=== PATIENT | female | born 1935 | race Caucasian/White ===

== ENCOUNTER → 2018-06-13 14:17 | Outpatient (CLI) | payer OTHER, SELFPAY ==
[2018-06-13 14:41] LABS: Add Manual Diff / Slide Review NO; Basophils Percent Auto 0.9 % (0-2); Hematocrit 43.2 % (36-46); Hemoglobin 14.8 g/dL (12.0-16.0); Lymphocytes Percent Auto 26.8 % (25-40); Mean Corpuscular HGB Conc 34.2 % (30-36); Mean Corpuscular Hemoglobin 32.1 PG (26-34); Monocytes Percent Auto 6.2 % (3-14); Neutrophils Absolute Auto 5600 /uL (3000-5900); Neutrophils Percent Auto 65.1 % (50-75); Platelet Count 229 X10^3/uL (150-400); Red Blood Cell Count 4.59 X10^6/uL (4.0-5.2); White Blood Cell Count 8.5 X10^3/uL (4.5-11.0)
[2018-06-13 14:43] LABS: Alanine Aminotransferase 29 IU/L (9-52); Albumin 4.5 g/dL (3.5-5.0); Albumin Globulin Ratio 1.5 (1.0-2.8); Alkaline Phosphatase 51 U/L (38-126); Aspartate Aminotransferase 33 IU/L (14-36); BUN Creatinine Ratio 37.1 (6-22); Bilirubin Total 0.5 mg/dL (0.2-1.3); Blood Urea Nitrogen 26 mg/dL (7-17); Calcium 9.1 mg/dL (8.4-10.2); Carbon Dioxide 31 mmol/L (22-32); Chloride 101 mmol/L (98-107); Estimated Glomerular Filt Rate > 60.0 mL/min (>60); Glucose 117 mg/dL (80-110); HEMOLYSIS 16 (0-50); Potassium 4.1 mmol/L (3.4-5.1); Sodium 141 mmol/L (137-145); Total Protein 7.5 g/dL (6.3-8.2)
[2018-06-13 15:12] LABS: Carcinoembryonic Antigen 1.1 ng/mL (0.1-3.0)
[2018-06-14 15:40] VITALS: BP 113/80; PULSE 77; RESP 15; TEMP 36.9; O2SAT 97
== END ==
PROVIDERS: Internal Medicine Hematology & Oncology; PCP Family Medicine; Visit Provider Nurse Practitioner Gerontology
DX: C18.9 Malignant neoplasm of colon, unspecified (principal)
CPT/HCPCS: 36415; 80053; 82378; 85025

== ENCOUNTER 2018-11-09 09:06 | Day surgery (SDC) | payer OTHER, SELFPAY ==
[2018-11-09 09:41] VITALS: BP 126/89; PULSE 99; RESP 16; TEMP 36.7; O2SAT 104; BMI 18.1
[2018-11-09] MEDS: ONDANSETRON 4 MG/2 ML INJ IV (11:06)
--- NOTE | 2018-11-09 11:09 | PM.HP.1 ---
History of Present Illness Date Patient Seen: 11/09/18 Time Patient Seen: 11:25 Chief complaint: [id number] COLONOSCOPY Narrative: Wonderful 83-year-old lady with a personal history of cecal malignancy. She has stage II malignancy with a right hemicolectomy in 2014. She returns today for a surveillance colonoscopy. She had a negative CT scan of the chest abdomen pelvis in October 2017. She reports she is feeling well and has had no evidence of recurrence. She denies any change in her bowel habits. She still exercising daily. Patient History Family & Social History Family History: Reviewed 11/09/18 by Humera Preciado MD Social History: household members spouse Meds Home Medications Medication Instructions Recorded Confirmed Type lysine 500 mg PO QDAY #0 08/23/16 11/09/18 History magnesium oxide 400 mg PO QDAY #0 08/23/16 11/09/18 History varicella-zoster gE-AS01B (PF) 0.5 ml IM SEE INSTRUCTIONS #1 ea 01/26/18 11/09/18 Rx [Shingrix (PF)] ascorbic acid-vitamin E-biotin 7.5 - 1,250 mg PO QAM 06/14/18 11/09/18 History [Hair, Skin, Nails with Biotin] calcium citrate 250 mg PO DAILY 06/14/18 11/09/18 History cyanocobalamin (vitamin B-12) 1,000 mcg PO DAILY 06/14/18 11/09/18 History [Vitamin B-12] ferrous sulfate 325 mg PO DAILY 06/14/18 11/09/18 History lactobacillus combination no.4 3,000 mmu cells PO DAILY 06/14/18 11/09/18 History [Probiotic] Allergies Allergy/AdvReac Type Severity Reaction Status Date / Time Sulfa (Sulfonamide Allergy Intermediate HIVES Verified 06/14/18 15:42 Antibiotics) [SULFA (SULFONAMIDE ANTIBIOTICS)] Review of Systems Review of Systems All systems reviewed & are unremarkable except as noted in HPI and below Exam Vital Signs (past 8 hours): - 11/09/18 09:41 Temperature 98.1 F Pulse Rate 99 H Respiratory Rate 16 Blood Pressure 126/89 Pulse Oximetry 104 H Oxygen Delivery Method Room Air Narrative Exam Narrative: Wonderful thin lady in no distress HEENT: Normocephalic and atraumatic, pupils equal round reactive to light accommodation with anicteric sclera Lungs: Clear bilaterally Heart: Regular rate and rhythm without murmur rub or gallop Abdomen: Soft, nontender, active bowel sounds Extremities: Warm well perfused Assessment & Plan Plan: Assessment/Plan Narrative: Remarkably healthy 83-year-old lady with a history of cecal cancer. We discussed the risks and benefits of colonoscopy the patient expressed desire to complete the procedure today.
[2018-11-09] MEDS: MIDAZOLAM 5 MG/5 ML VIAL IV (11:20)
[2018-11-09] MEDS: fentaNYL 250 MCG/5 ML INJ IV (11:21)
[2018-11-09 11:27] VITALS: BP 89/59; PULSE 90; RESP 16; TEMP 36.8; O2SAT 97
--- NOTE | 2018-11-09 11:27 | P.HP_ITS ---
History of Present Illness Date Patient Seen: 11/09/18 Time Patient Seen: 11:25 Chief complaint: [id number] COLONOSCOPY Narrative: Wonderful 83-year-old lady with a personal history of cecal malignancy. She has stage II malignancy with a right hemicolectomy in 2014. She returns today for a surveillance colonoscopy. She had a negative CT scan of the chest abdomen pelvis in October 2017. She reports she is feeling well and has had no evidence of recurrence. She denies any change in her bowel habits. She still exercising daily. Patient History Family & Social History Family History: Reviewed 11/09/18 by Humera Preciado MD Social History: household members spouse Meds Home Medications Medication Instructions Recorded Confirmed Type lysine 500 mg PO QDAY #0 08/23/16 11/09/18 History magnesium oxide 400 mg PO QDAY #0 08/23/16 11/09/18 History varicella-zoster gE-AS01B (PF) 0.5 ml IM SEE INSTRUCTIONS #1 ea 01/26/18 Rx [Shingrix (PF)] ascorbic acid-vitamin E-biotin 7.5 - 1,250 mg PO QAM 06/14/18 11/09/18 History [Hair, Skin, Nails with Biotin] calcium citrate 250 mg PO DAILY 06/14/18 11/09/18 History cyanocobalamin (vitamin B-12) 1,000 mcg PO DAILY 06/14/18 11/09/18 History [Vitamin B-12] ferrous sulfate 325 mg PO DAILY 06/14/18 11/09/18 History lactobacillus combination no.4 3,000 mmu cells PO DAILY 06/14/18 11/09/18 History [Probiotic] Allergies Allergy/AdvReac Type Severity Reaction Status Date / Time Sulfa (Sulfonamide Allergy Intermediate HIVES Verified 06/14/18 15:42 Antibiotics) [SULFA (SULFONAMIDE ANTIBIOTICS)] Review of Systems Review of Systems All systems reviewed & are unremarkable except as noted in HPI and below Exam Vital Signs (past 8 hours): - 11/09/18 09:41 Temperature 98.1 F Pulse Rate 99 H Respiratory Rate 16 Blood Pressure 126/89 Pulse Oximetry 104 H Oxygen Delivery Method Room Air Narrative Exam Narrative: Wonderful thin lady in no distress HEENT: Normocephalic and atraumatic, pupils equal round reactive to light accommodation with anicteric sclera Lungs: Clear bilaterally Heart: Regular rate and rhythm without murmur rub or gallop Abdomen: Soft, nontender, active bowel sounds Extremities: Warm well perfused Assessment & Plan Plan: Assessment/Plan Narrative: Remarkably healthy 83-year-old lady with a history of cecal cancer. We discussed the risks and benefits of colonoscopy the patient expressed desire to complete the procedure today.
--- NOTE | 2018-11-09 11:28 | PM.OP.1 ---
Operative Date/Time/Diagnoses Date of procedure: 11/09/18 Time of procedure: 11:28 Pre-op diagnosis: Personal history of colon cancer Post-op diagnosis: same Procedure & Clinicians Procedure: Colonoscopy to ileocolic anastomosis Same procedure as scheduled: Yes Indications: Cecal malignancy Last colonoscopy 2 years ago Surgeon: Humera Preciado Anesthesia Type: Sedation (Versed 4 mg; fentanyl 100 mcg) Operative Notes Findings: 1. Excellent prep 2. No polyps or mass lesions 3. No AV malformations 4. Ileocolic anastomosis identified and in good repair with no lesions or evidence of recurrence 5. Very very minimal diverticulosis with just a couple of scattered tiny pockets in the sigmoid region 6. Grade 1 internal hemorrhoids Closure Type: not applicable Specimen(s): none sent Procedure in detail: After obtaining informed consent, the patient was brought to the GI suite and placed in the left lateral decubitus position on the examination table. After placement of appropriate monitors, the patient was given incremental doses of Versed and Fentanyl until an appropriate level of sedation was achieved. A time out was held per SCOAP protocol. A digital rectal examination was performed and did not reveal any masses or obstructing lesions. The colonoscope was gently passed into the patient's anus and the entire colon navigated to the level of the ileocolic anastomosis with minimal difficulty. The scope was withdrawn being sure to go before and beyond all mucosal folds and prominences and get an excellent examination. The findings are noted above. At the level of the rectal vault, the scope was retroflexed and the internal anal canal was examined. The scope was straightened and air aspirated from the colon. The instrument was removed from the patient's body and the procedure was concluded. The patient was allowed to awaken from sedation without difficulty and taken to the post-anesthesia care unit in good condition. Total sedation time 20 min Total withdrawal time 9 min 31 sec Complications: none Condition: stable Disposition: PACU Plan for aftercare: 1. Discharge to home 2. Plan for next colonoscopy in 2 years or as clinically indicated
[2018-11-09 11:32] VITALS: BP 105/75; PULSE 90; RESP 20; TEMP 36.9; O2SAT 98
[2018-11-09 12:23] VITALS: BP 105/71; PULSE 74; RESP 16; TEMP 36.3; O2SAT 99
== END 2018-11-09 12:17 | disposition home or self-care (01) ==
PROVIDERS: PCP Family Medicine; Visit Provider Surgery
PROC: 0DJD8ZZ Inspection of Lower Intestinal Tract, Via Natural or Artificial Opening Endoscopic (ICD-10-PCS; CPT 45378; principal; 2018-11-09 10:45)
DX: Z85.038 Personal history of other malignant neoplasm of large intestine (principal); K57.30 Diverticulosis of large intestine without perforation or abscess without bleeding; K64.0 First degree hemorrhoids
CPT/HCPCS: 45378; 99152; J2250; J2405; J3010

== ENCOUNTER → 2019-06-09 09:31 | Outpatient (CLI) | payer OTHER, SELFPAY ==
--- NOTE | 2019-06-09 | DI.MG.S_ITS ---
BILATERAL DIGITAL SCREENING MAMMOGRAM 3D/2D WITH CAD WITH AUGMENTATION: 06/09/2019 CLINICAL: Routine screening. Comparison is made to exams dated: 06/13/2017 mammogram, 06/08/2017 mammogram, and 10/05/2010 mammogram - [facility]. There are scattered fibroglandular elements in both breasts. Current study was also evaluated with a Computer Aided Detection (CAD) system. Bilateral breast implants are stable. There are benign vascular calcifications in both breasts. No significant masses, calcifications, or other findings are seen in either breast. There has been no significant interval change. IMPRESSION: There is no mammographic evidence of malignancy. A 1 year screening mammogram is recommended. This exam was interpreted at Station ID: [id number]. NOTE: For mammograms, a report in lay terms will be sent to the patient. Approximately 15% of breast malignancies will not be visualized mammographically. In the management of a palpable breast mass, a negative mammogram must not discourage biopsy of a clinically suspicious lesion. Electronically Signed By: Preet gutierrez/kristel:06/11/2019 13:28:56 copy to: Jeane Cm letter sent: Normal Exam ACR BI-RADS Category 2: Benign Finding(s) [id number]
== END ==
PROVIDERS: PCP Family Medicine; Visit Provider Family Medicine
DX: Z12.31 Encounter for screening mammogram for malignant neoplasm of breast (principal)
CPT/HCPCS: 77063; 77067

== ENCOUNTER → 2019-08-02 14:43 | Outpatient (CLI) | payer OTHER, SELFPAY ==
--- NOTE | 2019-08-02 | DI.MRI.S_ITS ---
PROCEDURE: MR SHOULDER RT WO CON INDICATIONS: PAIN IN RIGHT SHOULDER WITH DECREASED RANGE OF MOTION TECHNIQUE: Noncontrast oblique coronal T2 fast spin echo with fat saturation, oblique sagittal T1 spin echo and T2 fast spin echo with fat saturation, axial T1 spin echo and T2 fast spin echo with fat saturation through the shoulder. COMPARISON: None. FINDINGS: Image quality: Excellent. Rotator cuff: Massive full-thickness tear of the supraspinatus and infraspinatus tendons measuring approximately 3.4 cm in AP dimension as seen on sagittal image 12 series 10. This measures approximately 3.2 cm on coronal image 10 series 8. Teres minor tendinopathy is noted. Subscapularis tendinopathy and thickening. Atrophy of the supraspinatus and infraspinatus muscles. Bones and bursae: No bone marrow contusions or fractures. Moderate hypertrophic acromioclavicular joint degeneration. The acromion demonstrates conventional anatomy, without an os acromiale. Capsule and soft tissues: Marked blunted appearance of the posterior labrum, probably reflecting chronic tear. There is also slight posterior subluxation of the humeral head relative to the glenoid The long head of the biceps tendon demonstrates normal location and morphology. The rotator interval appears normal, without fibrosis. The coracohumeral ligament is normal in thickness. IMPRESSION: Massive full-thickness tear involving the supraspinatus and infraspinatus tendons. Atrophy of the supraspinatus and infraspinatus muscles. Posterior labral tear with slight posterior subluxation of the humeral head relative to glenoid suggestive of microinstability. Teres minor and subscapularis tendinopathy. Dictated by: Alexandr Junior M.D. on 08/02/2019 at 15:47 Approved by: Alexandr Junior M.D. on 08/02/2019 at 15:53
== END ==
PROVIDERS: PCP Family Medicine; Visit Provider Orthopaedic Surgery
DX: M25.511 Pain in right shoulder (principal); M75.121 Complete rotator cuff tear or rupture of right shoulder, not specified as traumatic; M62.511 Muscle wasting and atrophy, not elsewhere classified, right shoulder; S43.491A Other sprain of right shoulder joint, initial encounter
CPT/HCPCS: 73221

== ENCOUNTER → 2019-11-08 12:54 | Outpatient (CLI) | payer OTHER, SELFPAY ==
[2019-11-08 13:17] LABS: Add Manual Diff / Slide Review NO; Basophils Absolute Auto 100 /uL (0-100); Basophils Percent Auto 0.7 % (0-2); Eosinophils Absolute Auto 100 /uL (0-450); Eosinophils Percent Auto 1.3 % (2-4); Hematocrit 44.3 % (36-46); Hemoglobin 15.3 g/dL (12.0-16.0); Lymphocytes Absolute Auto 2200 /uL (1100-4500); Lymphocytes Percent Auto 25.1 % (25-40); Mean Corpuscular HGB Conc 34.5 % (30-36); Mean Corpuscular Hemoglobin 32.1 PG (26-34); Monocytes Absolute Auto 600 /uL (0-900); Monocytes Percent Auto 6.8 % (3-14); Neutrophils Absolute Auto 5700 /uL (1500-7000); Neutrophils Percent Auto 66.1 % (50-75); Platelet Count 232 X10^3/uL (150-400); Red Blood Cell Count 4.76 X10^6/uL (4.0-5.2); Red Cell Distribution Width 13.7 % (11.6-14.8); White Blood Cell Count 8.6 X10^3/uL (4.5-11.0)
[2019-11-08 13:44] LABS: Alanine Aminotransferase 25 IU/L (<35); Albumin 4.9 g/dL (3.5-5.0); Albumin Globulin Ratio 1.6 (1.0-2.8); Alkaline Phosphatase 73 U/L (38-126); Aspartate Aminotransferase 30 IU/L (14-36); BUN Creatinine Ratio 32.9 (6-22); Bilirubin Total 0.6 mg/dL (0.2-1.3); Blood Urea Nitrogen 23 mg/dL (7-17); Calcium 10.2 mg/dL (8.4-10.2); Carbon Dioxide 32 mmol/L (22-32); Chloride 103 mmol/L (98-107); Estimated Glomerular Filt Rate > 60.0 mL/min (>60); Globulin 3.1 g/dL (1.7-4.1); Glucose 100 mg/dL (80-110); HEMOLYSIS < 15 (0-50); Sodium 142 mmol/L (137-145)
[2019-11-08 13:47] LABS: Potassium 6.2 mmol/L (3.4-5.1)
[2019-11-08 14:14] LABS: Carcinoembryonic Antigen 1.3 ng/mL (0.1-3.0)
== END ==
PROVIDERS: Internal Medicine Hematology & Oncology; PCP Family Medicine
DX: C18.9 Malignant neoplasm of colon, unspecified (principal)
CPT/HCPCS: 36415; 80053; 82378; 85025

== ENCOUNTER → 2019-11-20 16:42 | Outpatient (CLI) | payer OTHER, SELFPAY ==
[2019-11-20 17:55] LABS: Add Manual Diff / Slide Review NO; Basophils Absolute Auto 100 /uL (0-100); Basophils Percent Auto 0.9 % (0-2); Eosinophils Absolute Auto 100 /uL (0-450); Eosinophils Percent Auto 1.2 % (2-4); Hematocrit 42.2 % (36-46); Hemoglobin 14.5 g/dL (12.0-16.0); Lymphocytes Absolute Auto 2900 /uL (1100-4500); Lymphocytes Percent Auto 29.5 % (25-40); Mean Corpuscular HGB Conc 34.3 % (30-36); Mean Corpuscular Hemoglobin 32.1 PG (26-34); Mean Corpuscular Volume 93.6 fL (80-100); Monocytes Absolute Auto 700 /uL (0-900); Monocytes Percent Auto 6.9 % (3-14); Neutrophils Absolute Auto 6100 /uL (1500-7000); Neutrophils Percent Auto 61.5 % (50-75); Platelet Count 229 X10^3/uL (150-400); Red Blood Cell Count 4.51 X10^6/uL (4.0-5.2); Red Cell Distribution Width 13.4 % (11.6-14.8); White Blood Cell Count 9.9 X10^3/uL (4.5-11.0)
[2019-11-20 18:17] LABS: Alanine Aminotransferase 22 IU/L (<35); Albumin 4.7 g/dL (3.5-5.0); Albumin Globulin Ratio 1.5 (1.0-2.8); Alkaline Phosphatase 69 U/L (38-126); Aspartate Aminotransferase 30 IU/L (14-36); BUN Creatinine Ratio 33.8 (6-22); Bilirubin Total 0.4 mg/dL (0.2-1.3); Blood Urea Nitrogen 27 mg/dL (7-17); Calcium 10.4 mg/dL (8.4-10.2); Carbon Dioxide 28 mmol/L (22-32); Chloride 102 mmol/L (98-107); Estimated Glomerular Filt Rate > 60.0 mL/min (>60); Globulin 3.1 g/dL (1.7-4.1); Glucose 81 mg/dL (80-110); HEMOLYSIS < 15 (0-50); Potassium 4.3 mmol/L (3.4-5.1); Sodium 139 mmol/L (137-145); Total Protein 7.8 g/dL (6.3-8.2)
[2019-11-20 18:49] LABS: Carcinoembryonic Antigen 0.9 ng/mL (0.1-3.0)
== END ==
PROVIDERS: PCP Family Medicine; Visit Provider Internal Medicine Hematology & Oncology
DX: C18.9 Malignant neoplasm of colon, unspecified (principal)
CPT/HCPCS: 36415; 80053; 82378; 85025

== ENCOUNTER 2019-11-26 14:30 | Outpatient (RCR) | payer OTHER, SELFPAY ==
--- NOTE | 2019-08-09 17:41 | PT.OIE ---
Current Diagnoses Complete rotator cuff tear or rupture of right shoulder, not specified as traumatic (08/09/19) Difficulty in walking, not elsewhere classified (08/09/19) Weakness (08/09/19) Other specified fracture of right pubis, initial encounter for closed fracture (08/09/19) Contusion of right shoulder, initial encounter (08/09/19) Past Medical History (Last Updated 07/03/19 @ 09:38 by Ree Mann DO) Basal cell carcinoma (Acute) Visit Care Team Role Provider Type Ree Mann DO Primary Care Provider Physician Specialty: Family Practice Address: [address] [place] [address], [facility] [place], [address] Email: [email or web address] Heri Lynch MD Attending Provider Physician Specialty: Orthopedic Surgery Address: [address] [place] [address], [phone] Email: [email or web address] [facility] Initial Evaluation PT-OP-A Visit Information Start: 08/09/19 15:17 Freq: Status: Active Protocol: Document 08/09/19 15:18 [facility] (Rec: 08/09/19 16:03 [facility] [id number]) Out-Patient Physical Therapy Visit Information Visit Information Visit Type Initial Evaluation Visit Start Time 15:16 Visit Stop Time 16:05 Total Visit Minutes 49 Visit Number 1 Number of QUANTITATIVE CONSULTANT Visits 0 PT-OP-B Current Condition Start: 08/09/19 15:17 Freq: Status: Active Protocol: Document 08/09/19 15:18 [facility] (Rec: 08/09/19 16:03 [facility] [id number]) Current Condition History of Current Condition Onset Date 07/10 Current Complaints R shoulder (RCT)& elbow pain History of Current Condition Pt reports she fractured her pelvis on 07/10 when she was taking a late night walk with her dgt and caught her foot on a curb and fractured her pelvis, and hit shoulder & elbow. Her MRI showed a complete R RCT . She has improved with gait and her ability to use her RUE some now. Pt reports elbow is chip applying machine tender but no fractures. No history of falls except skiing etc. Prior to this injury pt was painting, 3-5 miles of hiking daily, SUP, and gardening. Pt reports difficulty getting out of the chair Prior Treatments and Tests MRI of shoulder, instructed her on pendulums & wall crawls Treatment Goals Patient/Caregiver Goals walk more and hike, paint, SUP , be able to fix hair, return to gardening, get out of chair easily PT-OP-C Subjective Start: 08/09/19 15:17 Freq: Status: Active Protocol: Document 08/09/19 15:18 [facility] (Rec: 08/09/19 16:03 [facility] [id number]) Patient Questionnaires Quick Dash- Upper Extremity Quick Dash UE Score 75 Quick Dash UE Impairment 60 to 79% Impaired (Score 60- 79) OP-PT Pain Assessment Location pelvis Pain Location Details R groin Intensity 3 Scale Used Numeric (1 - 10) Description Aching,Dull Description- Other stinging Frequency Daily Pain Aggravating Factors Sitting Other Pain Aggravating Factors at end of the day, be on her feet Pain Alleviating Factors Medication R shoulder Pain Location Details scapula, neck, post brachium & sup shoulder Intensity 5 Scale Used Numeric (1 - 10) Description Aching,Sharp,With Movement Frequency Daily Pain Duration minutes Other Pain Aggravating Factors sleeping, raising arm Pain Alleviating Factors Cold PT-OP-E Functional Tests Start: 08/09/19 15:17 Freq: Status: Active Protocol: Document 08/09/19 15:18 [facility] (Rec: 08/09/19 17:41 [facility] [id number]) Functional Tests Functional Gait Assessment Score 20 Functional Gait Assessment Impairment 20 to <40% Impaired (Score 19- Rating 24) PT-OP-F Manual Assessment Start: 08/09/19 15:17 Freq: Status: Active Protocol: Document 08/09/19 15:18 [facility] (Rec: 08/09/19 16:03 [facility] [id number]) Manual Assessments Soft Tissue Assessment Soft Tissue Mobility Assessment tightness in parascapular mm R PT-OP-G Mobility & Gait Start: 08/09/19 15:17 Freq: Status: Active Protocol: Document 08/09/19 15:18 [facility] (Rec: 08/09/19 16:03 [facility] [id number]) OP Gait Assessment Comments Gait Comments Pt was using a walker until 2 days ago and then used poles since MD told her don't fall. Uses 2 poles in house most of the time. WIthout poles: slight deviation with ER of pelvis PT-OP-K Range of Motion Start: 08/09/19 15:17 Freq: Status: Active Protocol: Document 08/09/19 15:18 [facility] (Rec: 08/09/19 16:03 [facility] [id number]) Shoulder Goniometric Range of Motion Shoulder Left Active Flexion 156 Extension 70 Abduction 180 Internal Rotation Behind Back (text) T4 Right Active Flexion 64 Extension 62 Abduction 132 External Rotation at 0 degrees Abduction 35 Internal Rotation Behind Back (text) T10 PT-OP-M Strength Start: 08/09/19 15:17 Freq: Status: Active Protocol: Document 08/09/19 15:18 [facility] (Rec: 08/09/19 16:03 [facility] [id number]) Shoulder Strength Shoulder Manual Muscle Testing Right Flexion 2 Poor Extension 4- Good- Abduction (C5) 3 Fair External Rotation 3 Fair Internal Rotation 4- Good- Hip Strength Hip Manual Muscle Testing Left Flexion (L2) 5 Normal Extension (S1) 3+ Fair+ Abduction 4- Good- Adduction 5 Normal External Rotation 4+ Good+ Internal Rotation 4- Good- Right Flexion (L2) 3+ Fair+ Extension (S1) 3+ Fair+ Abduction 3+ Fair+ Adduction 4 Good External Rotation 3+ Fair+ Internal Rotation 3+ Fair+ Knee Strength Knee Manual Muscle Testing Left Flexion (S2) 5 Normal Extension (L3) 5 Normal Right Flexion (S2) 4+ Good+ Extension (L3) 5 Normal Ankle/Foot Strength Ankle and Foot Manual Muscle Testing Left Dorsiflexion (L4) 4+ Good+ Plantarflexion (S1) 5 Normal Right Dorsiflexion (L4) 4+ Good+ Plantarflexion (S1) 5 Normal PT-OP-Q Treatments Start: 08/09/19 15:17 Freq: Status: Active Protocol: Document 08/09/19 15:18 [facility] (Rec: 08/09/19 16:03 [facility] [id number]) Therapeutic Exercises Supine Exercises flex Supine Exercise Name attempted tbar flex but stopped d/t pain bridge Side bilateral Reps/Minutes 10 chest press Supine Exercise Name AAROM RUE Side bilateral Reps/Minutes 10 Standing Exercises sit<>stand Side bilateral Reps/Minutes 10 Self-Care/Home Management Treatment Education Other Education anatomy of R shoulder region, discussed cont use of ice or heat if pt does find it helpful PT-OP-T Assessment and Plan Start: 08/09/19 15:17 Freq: Status: Active Protocol: Document 08/09/19 15:18 [facility] (Rec: 08/09/19 16:03 [facility] [id number]) Physical Therapy Assessment Rehab Potential Rehabilitation Potential Excellent Evaluation Complexity Number of Personal Factors/Comorbidities 3 or More Number of Body Systems Impaired 4 or More Clinical Presentation at Evaluation Stable Impairments Impairments Activity Tolerance,Balance, Functional Activities, Functional Mobility,Gait,Pain, Posture,ROM,Soft Tissue Mobility,Strength Goals ADLs Short Term Goal (STG) Pt will be able to do make up and fix hair with RUE without inc pain greater than 1 point on VAS scale STG Duration 09/24/19 activities Short Term Goal (STG) Pt will return to hiking and walking 1 mile without inc in pain. STG Duration 09/20/19 Footwear Sales Coordinator Goal (LTG) Pt will be able to return to working in the yard without issues with shoulder or groin or sense of LOB. LTG Duration 10/09/19 strength Short Term Goal (STG) Pt will be indep with HEP STG Duration 09/09/19 Footwear Sales Coordinator Goal (LTG) Pt will score 5/5 UE and LE strength in order to allow her to return to her typical daily activities and will be able to paint without difficulty. LTG Duration 10/09/19 fall risk Footwear Sales Coordinator Goal (LTG) Pt will improve FGA to score of 23 or greater to show less risk for falls. LTG Duration 10/09/19 Assessment Summary Assessment Pt presents with R RCT and fracture of R pubic ramus after catching her foot on a curb when walking at night 1 month ago. Pt is already improving significantly since the injury and has recently stopped using the walker much except at night in the house d /t concern of falling. Pt has mild gait deviations, mild balance impairments and dec LE strength. D/t R shoudler contusion and RCT, pt is unable to lift arm and has inc difficulty with ADLs and painting, which pt typically spends a lot of time doing. Pt would benefit from skilled PT to address deficits of UE and LEs in order to improve her function and return pt back to typical activity level. Physical Therapy Plan Frequency and Duration Frequency of Treatment 2x/Week Duration of Treatment 2 months Plan of Care Start Date 08/09/19 Plan of Care End Date 10/09/19 Therapeutic Interventions Therapeutic Interventions Aquatic Therapy,Balance Training,Gait Training,Home Exercise Program,Joint Mobilizations,Manual Therapy, Neuromuscular Re-education, Patient/Caregiver Education, Self-Care/Home Management,Soft Tissue Mobilization,Taping, Therapeutic Activities, Therapeutic Exercises Modalities Cold Pack/Ice Massage,Electric Stimulation,Hot Packs, Infrared Therapy,Iontophoresis ,Ultrasound Next Visit Focus/Plan Next Note Type Treatment Note Next Visit Plan SHAKEEL pate with tbar, STM to shoulder & joint mobs, balance board, standing hip abd & ext
--- NOTE | 2019-08-14 13:55 | PT.OTN ---
Current Diagnoses Complete rotator cuff tear or rupture of right shoulder, not specified as traumatic (08/14/19) Difficulty in walking, not elsewhere classified (08/14/19) Weakness (08/14/19) Other specified fracture of right pubis, initial encounter for closed fracture (08/14/19) Contusion of right shoulder, initial encounter (08/14/19) Physical Therapy Treatment Note PT-OP-A Visit Information Start: 08/09/19 15:17 Freq: Status: Active Protocol: Document 08/14/19 09:12 [facility] (Rec: 08/14/19 13:55 [facility] [id number]) Out-Patient Physical Therapy Visit Information Visit Information Visit Type Treatment Note Visit Start Time 09:03 Visit Stop Time 09:54 Total Visit Minutes 51 Visit Number 2 Number of THREAD WEAVER Visits 0 PT-OP-B Current Condition Start: 08/09/19 15:17 Freq: Status: Active Protocol: Document 08/09/19 15:18 [facility] (Rec: 08/09/19 16:03 [facility] [id number]) Current Condition History of Current Condition Onset Date 07/10 Current Complaints R shoulder (RCT)& elbow pain History of Current Condition Pt reports she fractured her pelvis on 07/10 when she was taking a late night walk with her dgt and caught her foot on a curb and fractured her pelvis, and hit shoulder & elbow. Her MRI showed a complete R RCT . She has improved with gait and her ability to use her RUE some now. Pt reports elbow is distiller but no fractures. No history of falls except skiing etc. Prior to this injury pt was painting, 3-5 miles of hiking daily, SUP, and gardening. Pt reports difficulty getting out of the chair Prior Treatments and Tests MRI of shoulder, MD instructed her on pendulums & wall crawls Treatment Goals Patient/Caregiver Goals walk more and hike, paint, SUP , be able to fix hair, return to gardening, get out of chair easily PT-OP-C Subjective Start: 08/09/19 15:17 Freq: Status: Active Protocol: Document 08/14/19 09:12 [facility] (Rec: 08/14/19 13:55 [facility] [id number]) OP-PT Subjective Patient Comments Patient Comments Pt reports rib soreness after last session but does not know what caused it. Notes she has been doing exercises and rib pain is better. PT-OP-E Functional Tests Start: 08/09/19 15:17 Freq: Status: Active Protocol: Document 08/09/19 15:18 [facility] (Rec: 08/09/19 17:41 [facility] [id number]) Functional Tests Functional Gait Assessment Score 20 Functional Gait Assessment Impairment 20 to <40% Impaired (Score 19- Rating 24) PT-OP-F Manual Assessment Start: 08/09/19 15:17 Freq: Status: Active Protocol: Document 08/09/19 15:18 [facility] (Rec: 08/09/19 16:03 [facility] [id number]) Manual Assessments Soft Tissue Assessment Soft Tissue Mobility Assessment tightness in parascapular mm R PT-OP-G Mobility & Gait Start: 08/09/19 15:17 Freq: Status: Active Protocol: Document 08/09/19 15:18 [facility] (Rec: 08/09/19 16:03 [facility] [id number]) OP Gait Assessment Comments Gait Comments Pt was using a walker until 2 days ago and then used poles since told her don't fall. Uses 2 poles in house most of the time. WIthout poles: slight deviation with ER of pelvis PT-OP-K Range of Motion Start: 08/09/19 15:17 Freq: Status: Active Protocol: Document 08/09/19 15:18 [facility] (Rec: 08/09/19 16:03 [facility] [id number]) Shoulder Goniometric Range of Motion Shoulder Left Active Flexion 156 Extension 70 Abduction 180 Internal Rotation Behind Back (text) T4 Right Active Flexion 64 Extension 62 Abduction 132 External Rotation at 0 degrees Abduction 35 Internal Rotation Behind Back (text) T10 PT-OP-M Strength Start: 08/09/19 15:17 Freq: Status: Active Protocol: Document 08/09/19 15:18 [facility] (Rec: 08/09/19 16:03 [facility] [id number]) Shoulder Strength Shoulder Manual Muscle Testing Right Flexion 2 Poor Extension 4- Good- Abduction (C5) 3 Fair External Rotation 3 Fair Internal Rotation 4- Good- Hip Strength Hip Manual Muscle Testing Left Flexion (L2) 5 Normal Extension (S1) 3+ Fair+ Abduction 4- Good- Adduction 5 Normal External Rotation 4+ Good+ Internal Rotation 4- Good- Right Flexion (L2) 3+ Fair+ Extension (S1) 3+ Fair+ Abduction 3+ Fair+ Adduction 4 Good External Rotation 3+ Fair+ Internal Rotation 3+ Fair+ Knee Strength Knee Manual Muscle Testing Left Flexion (S2) 5 Normal Extension (L3) 5 Normal Right Flexion (S2) 4+ Good+ Extension (L3) 5 Normal Ankle/Foot Strength Ankle and Foot Manual Muscle Testing Left Dorsiflexion (L4) 4+ Good+ Plantarflexion (S1) 5 Normal Right Dorsiflexion (L4) 4+ Good+ Plantarflexion (S1) 5 Normal PT-OP-Q Treatments Start: 08/09/19 15:17 Freq: Status: Active Protocol: Document 08/14/19 09:12 [facility] (Rec: 08/14/19 13:55 [facility] [id number]) Cardio Equipment Recumbent Stepper (Sci-Fit) Duration (Minutes) 5 Resistance 3 Seat Position 9 Gym Equipment Shuttle Balance red clips Details WBOS: fwd & side wt shifts & balancing Therapeutic Exercises Supine Exercises core Supine Exercise Name Knee ext w/alt bent knee Side bilateral Reps/Minutes 10 Sitting Exercises pullys Sitting Exercise Name flex, abd Side right Reps/Minutes 15 Standing Exercises shoulder flex Standing Exercise Name rolling ball up wall in small ranges Side right Reps/Minutes 2 min hip ext Side right Equipment Used L1 Reps/Minutes 15 hip abd Side bilateral Equipment Used L1 Reps/Minutes 15 Manual Therapy Treatment Soft Tissue Mobilization infraspinatus Intensity/Depth Superficial Body Position Supine PT-OP-T Assessment and Plan Start: 08/09/19 15:17 Freq: Status: Active Protocol: Document 08/14/19 09:12 [facility] (Rec: 08/14/19 13:55 [facility] [id number]) Physical Therapy Assessment Goals ADLs Short Term Goal (STG) Pt will be able to do make up and fix hair with RUE without inc pain greater than 1 point on VAS scale STG Duration 09/24/19 activities Short Term Goal (STG) Pt will return to hiking and walking 1 mile without inc in pain. STG Duration 09/20/19 Skilled Nursing Goal (LTG) Pt will be able to return to working in the yard without issues with shoulder or groin or sense of LOB. LTG Duration 10/09/19 strength Short Term Goal (STG) Pt will be indep with HEP STG Duration 09/09/19 Glass Loading Equipment Tender Goal (LTG) Pt will score 5/5 UE and LE strength in order to allow her to return to her typical daily activities and will be able to paint without difficulty. LTG Duration 10/09/19 fall risk Skilled Nursing Goal (LTG) Pt will improve FGA to score of 23 or greater to show less risk for falls. LTG Duration 10/09/19 Assessment Summary Assessment Pt required cueing throughout session re: slowing down exercises and staying in comfortable range with exercises. She had pain in R groin with L hip ext so was unable to do that exercise B. Physical Therapy Plan Frequency and Duration Frequency of Treatment 2x/Week Duration of Treatment 2 months Plan of Care Start Date 08/09/19 Plan of Care End Date 10/09/19 Next Visit Focus/Plan Next Note Type Treatment Note Next Visit Plan cont to work on soft tissue and gentle joint mobs for shoulder, work on ROM for shoulder in comfortable range & LE strengthening.
--- NOTE | 2019-08-16 10:42 | PT.OTN ---
Current Diagnoses Complete rotator cuff tear or rupture of right shoulder, not specified as traumatic (08/16/19) Difficulty in walking, not elsewhere classified (08/16/19) Weakness (08/16/19) Other specified fracture of right pubis, initial encounter for closed fracture (08/16/19) Contusion of right shoulder, initial encounter (08/16/19) Physical Therapy Treatment Note PT-OP-A Visit Information Start: 08/09/19 15:17 Freq: Status: Active Protocol: Document 08/16/19 09:00 [facility] (Rec: 08/16/19 10:42 [facility] [id number]) Out-Patient Physical Therapy Visit Information Visit Information Visit Type Treatment Note Visit Start Time 09:04 Visit Stop Time 09:54 Total Visit Minutes 50 Visit Number 3 Number of AIRLINE PILOT FLIGHT INSTRUCTOR Visits 0 PT-OP-B Current Condition Start: 08/09/19 15:17 Freq: Status: Active Protocol: Document 08/09/19 15:18 [facility] (Rec: 08/09/19 16:03 [facility] [id number]) Current Condition History of Current Condition Onset Date 07/10 Current Complaints R shoulder (RCT)& elbow pain History of Current Condition Pt reports she fractured her pelvis on 07/10 when she was taking a late night walk with her dgt and caught her foot on a curb and fractured her pelvis, and hit shoulder & elbow. Her MRI showed a complete R RCT . She has improved with gait and her ability to use her RUE some now. Pt reports elbow is powerhouse tender but no fractures. No history of falls except skiing etc. Prior to this injury pt was painting, 3-5 miles of hiking daily, SUP, and gardening. Pt reports difficulty getting out of the chair Prior Treatments and Tests MRI of shoulder, MD instructed her on pendulums & wall crawls Treatment Goals Patient/Caregiver Goals walk more and hike, paint, SUP , be able to fix hair, return to gardening, get out of chair easily PT-OP-C Subjective Start: 08/09/19 15:17 Freq: Status: Active Protocol: Document 08/16/19 09:00 [facility] (Rec: 08/16/19 10:42 [facility] [id number]) OP-PT Subjective Patient Comments Patient Comments Pt reports she felt like icing helped after last session. PT-OP-E Functional Tests Start: 08/09/19 15:17 Freq: Status: Active Protocol: Document 08/09/19 15:18 [facility] (Rec: 08/09/19 17:41 [facility] [id number]) Functional Tests Functional Gait Assessment Score 20 Functional Gait Assessment Impairment 20 to <40% Impaired (Score 19- Rating 24) PT-OP-F Manual Assessment Start: 08/09/19 15:17 Freq: Status: Active Protocol: Document 08/09/19 15:18 [facility] (Rec: 08/09/19 16:03 [facility] [id number]) Manual Assessments Soft Tissue Assessment Soft Tissue Mobility Assessment tightness in parascapular mm R PT-OP-G Mobility & Gait Start: 08/09/19 15:17 Freq: Status: Active Protocol: Document 08/09/19 15:18 [facility] (Rec: 08/09/19 16:03 [facility] [id number]) OP Gait Assessment Comments Gait Comments Pt was using a walker until 2 days ago and then used poles since MD told her don't fall. Uses 2 poles in house most of the time. WIthout poles: slight deviation with ER of pelvis PT-OP-K Range of Motion Start: 08/09/19 15:17 Freq: Status: Active Protocol: Document 08/09/19 15:18 [facility] (Rec: 08/09/19 16:03 [facility] [id number]) Shoulder Goniometric Range of Motion Shoulder Left Active Flexion 156 Extension 70 Abduction 180 Internal Rotation Behind Back (text) T4 Right Active Flexion 64 Extension 62 Abduction 132 External Rotation at 0 degrees Abduction 35 Internal Rotation Behind Back (text) T10 PT-OP-M Strength Start: 08/09/19 15:17 Freq: Status: Active Protocol: Document 08/09/19 15:18 [facility] (Rec: 08/09/19 16:03 [facility] [id number]) Shoulder Strength Shoulder Manual Muscle Testing Right Flexion 2 Poor Extension 4- Good- Abduction (C5) 3 Fair External Rotation 3 Fair Internal Rotation 4- Good- Hip Strength Hip Manual Muscle Testing Left Flexion (L2) 5 Normal Extension (S1) 3+ Fair+ Abduction 4- Good- Adduction 5 Normal External Rotation 4+ Good+ Internal Rotation 4- Good- Right Flexion (L2) 3+ Fair+ Extension (S1) 3+ Fair+ Abduction 3+ Fair+ Adduction 4 Good External Rotation 3+ Fair+ Internal Rotation 3+ Fair+ Knee Strength Knee Manual Muscle Testing Left Flexion (S2) 5 Normal Extension (L3) 5 Normal Right Flexion (S2) 4+ Good+ Extension (L3) 5 Normal Ankle/Foot Strength Ankle and Foot Manual Muscle Testing Left Dorsiflexion (L4) 4+ Good+ Plantarflexion (S1) 5 Normal Right Dorsiflexion (L4) 4+ Good+ Plantarflexion (S1) 5 Normal PT-OP-Q Treatments Start: 08/09/19 15:17 Freq: Status: Active Protocol: Document 08/16/19 09:00 [facility] (Rec: 08/16/19 10:42 [facility] [id number]) Cardio Equipment Recumbent Elliptical ([employer]) Duration (Minutes) 5 Resistance 5 Seat Position 5 Therapeutic Exercises Supine Exercises flex Supine Exercise Name press up then overhead AAROM Tbar Side right Reps/Minutes 15 chest press Supine Exercise Name AAROM RUE Side bilateral Reps/Minutes 10 Sidelying Exercises ER Sidelying Exercise Name shoulder Side right Reps/Minutes 15 abd Sidelying Exercise Name shoulder Side right Reps/Minutes 10 Sitting Exercises flex Sitting Exercise Name cane AAROM w/fwd lean & LUE assist Reps/Minutes 10 pullys Sitting Exercise Name flex, abd Side right Reps/Minutes 15 Standing Exercises anne pose Standing Exercise Name at sink Side bilateral Reps/Minutes 30 sec Manual Therapy Treatment Soft Tissue Mobilization UT, LS Body Location UT, LS, rhomboids Mobilization Type Rolling,Strumming Intensity/Depth Moderate Body Position Sidelying infraspinatus Intensity/Depth Superficial Body Position Sidelying PT-OP-R Modalities Start: 08/09/19 15:17 Freq: Status: Active Protocol: Document 08/16/19 09:00 [facility] (Rec: 08/16/19 10:42 [facility] [id number]) Hot Pack/Cold Pack Treatment Cold Pack Location R shoulder, ribs & hip Patient Position Hooklying Treatment Duration (minutes) 10 PT-OP-T Assessment and Plan Start: 08/09/19 15:17 Freq: Status: Active Protocol: Document 08/16/19 09:00 [facility] (Rec: 08/16/19 10:42 [facility] [id number]) Physical Therapy Assessment Goals ADLs Short Term Goal (STG) Pt will be able to do make up and fix hair with RUE without inc pain greater than 1 point on VAS scale STG Duration 09/24/19 activities Short Term Goal (STG) Pt will return to hiking and walking 1 mile without inc in pain. STG Duration 09/20/19 Half-Way Goal (LTG) Pt will be able to return to working in the yard without issues with shoulder or groin or sense of LOB. LTG Duration 10/09/19 strength Short Term Goal (STG) Pt will be indep with HEP STG Duration 09/09/19 Half-Way Goal (LTG) Pt will score 5/5 UE and LE strength in order to allow her to return to her typical daily activities and will be able to paint without difficulty. LTG Duration 10/09/19 fall risk Half-Way Goal (LTG) Pt will improve FGA to score of 23 or greater to show less risk for falls. LTG Duration 10/09/19 Assessment Summary Assessment Pt able to improve with shoulder motion today with AAROM exercises and was able to tolerate some AROM exercises. Physical Therapy Plan Frequency and Duration Frequency of Treatment 2x/Week Duration of Treatment 2 months Plan of Care Start Date 08/09/19 Plan of Care End Date 10/09/19 Next Visit Focus/Plan Next Note Type Treatment Note Next Visit Plan cont to work on soft tissue and gentle joint mobs for shoulder, work on ROM for shoulder in comfortable range & LE strengthening. Get pt good HEP for next 2 weeks while away
--- NOTE | 2019-08-21 16:12 | PT.OTN ---
Current Diagnoses Complete rotator cuff tear or rupture of right shoulder, not specified as traumatic (08/21/19) Difficulty in walking, not elsewhere classified (08/21/19) Weakness (08/21/19) Other specified fracture of right pubis, initial encounter for closed fracture (08/21/19) Contusion of right shoulder, initial encounter (08/21/19) Physical Therapy Treatment Note PT-OP-A Visit Information Start: 08/09/19 15:17 Freq: Status: Active Protocol: Document 08/21/19 15:27 [facility] (Rec: 08/21/19 16:12 [facility] [id number]) Out-Patient Physical Therapy Visit Information Visit Information Visit Type Treatment Note Visit Start Time 15:14 Visit Stop Time 15:59 Total Visit Minutes 45 Visit Number 4 Number of GROUP WORK PROGRAM DIRECTOR Visits 0 PT-OP-B Current Condition Start: 08/09/19 15:17 Freq: Status: Active Protocol: Document 08/09/19 15:18 [facility] (Rec: 08/09/19 16:03 [facility] [id number]) Current Condition History of Current Condition Onset Date 07/10 Current Complaints R shoulder (RCT)& elbow pain History of Current Condition Pt reports she fractured her pelvis on 07/10 when she was taking a late night walk with her dgt and caught her foot on a curb and fractured her pelvis, and hit shoulder & elbow. Her MRI showed a complete R RCT . She has improved with gait and her ability to use her RUE some now. Pt reports elbow is cloth desizing range tender but no fractures. No history of falls except skiing etc. Prior to this injury pt was painting, 3-5 miles of hiking daily, SUP, and gardening. Pt reports difficulty getting out of the chair Prior Treatments and Tests MRI of shoulder, MD instructed her on pendulums & wall crawls Treatment Goals Patient/Caregiver Goals walk more and hike, paint, SUP , be able to fix hair, return to gardening, get out of chair easily PT-OP-C Subjective Start: 08/09/19 15:17 Freq: Status: Active Protocol: Document 08/21/19 15:27 [facility] (Rec: 08/21/19 16:12 [facility] [id number]) OP-PT Subjective Patient Comments Patient Comments Pt reports some exercises causing pain. PT-OP-E Functional Tests Start: 08/09/19 15:17 Freq: Status: Active Protocol: Document 08/09/19 15:18 [facility] (Rec: 08/09/19 17:41 [facility] [id number]) Functional Tests Functional Gait Assessment Score 20 Functional Gait Assessment Impairment 20 to <40% Impaired (Score 19- Rating 24) PT-OP-F Manual Assessment Start: 08/09/19 15:17 Freq: Status: Active Protocol: Document 08/09/19 15:18 [facility] (Rec: 08/09/19 16:03 [facility] [id number]) Manual Assessments Soft Tissue Assessment Soft Tissue Mobility Assessment tightness in parascapular mm R PT-OP-G Mobility & Gait Start: 08/09/19 15:17 Freq: Status: Active Protocol: Document 08/09/19 15:18 [facility] (Rec: 08/09/19 16:03 [facility] [id number]) OP Gait Assessment Comments Gait Comments Pt was using a walker until 2 days ago and then used poles since MD told her don't fall. Uses 2 poles in house most of the time. WIthout poles: slight deviation with ER of pelvis PT-OP-K Range of Motion Start: 08/09/19 15:17 Freq: Status: Active Protocol: Document 08/09/19 15:18 [facility] (Rec: 08/09/19 16:03 [facility] [id number]) Shoulder Goniometric Range of Motion Shoulder Left Active Flexion 156 Extension 70 Abduction 180 Internal Rotation Behind Back (text) T4 Right Active Flexion 64 Extension 62 Abduction 132 External Rotation at 0 degrees Abduction 35 Internal Rotation Behind Back (text) T10 PT-OP-M Strength Start: 08/09/19 15:17 Freq: Status: Active Protocol: Document 08/09/19 15:18 [facility] (Rec: 08/09/19 16:03 [facility] [id number]) Shoulder Strength Shoulder Manual Muscle Testing Right Flexion 2 Poor Extension 4- Good- Abduction (C5) 3 Fair External Rotation 3 Fair Internal Rotation 4- Good- Hip Strength Hip Manual Muscle Testing Left Flexion (L2) 5 Normal Extension (S1) 3+ Fair+ Abduction 4- Good- Adduction 5 Normal External Rotation 4+ Good+ Internal Rotation 4- Good- Right Flexion (L2) 3+ Fair+ Extension (S1) 3+ Fair+ Abduction 3+ Fair+ Adduction 4 Good External Rotation 3+ Fair+ Internal Rotation 3+ Fair+ Knee Strength Knee Manual Muscle Testing Left Flexion (S2) 5 Normal Extension (L3) 5 Normal Right Flexion (S2) 4+ Good+ Extension (L3) 5 Normal Ankle/Foot Strength Ankle and Foot Manual Muscle Testing Left Dorsiflexion (L4) 4+ Good+ Plantarflexion (S1) 5 Normal Right Dorsiflexion (L4) 4+ Good+ Plantarflexion (S1) 5 Normal PT-OP-Q Treatments Start: 08/09/19 15:17 Freq: Status: Active Protocol: Document 08/21/19 15:27 [facility] (Rec: 08/21/19 16:12 [facility] [id number]) Cardio Equipment Recumbent Elliptical ([employer]) Duration (Minutes) 3 Resistance 5 Seat Position 5 Therapeutic Exercises Supine Exercises chest press Supine Exercise Name AAROM RUE to flex Side bilateral Reps/Minutes 10 Sidelying Exercises ER Sidelying Exercise Name shoulder Side right Reps/Minutes 15 abd Sidelying Exercise Name shoulder Side right Reps/Minutes 10 Sitting Exercises flex Sitting Exercise Name cane AAROM w/fwd lean & LUE assist Reps/Minutes 10 pullys Sitting Exercise Name flex, abd Side right Reps/Minutes 15 Standing Exercises wall posture Standing Exercise Name wall roll up anne pose Standing Exercise Name at sink Side bilateral Reps/Minutes 30 sec Manual Therapy Treatment Soft Tissue Mobilization UT, LS Body Location UT, LS, rhomboids Mobilization Type Rolling,Strumming Intensity/Depth Moderate Body Position Sidelying infraspinatus Body Location infraspinatus &teres major/ minor Intensity/Depth Moderate Body Position Sidelying PT-OP-R Modalities Start: 08/09/19 15:17 Freq: Status: Active Protocol: Document 08/16/19 09:00 [facility] (Rec: 08/16/19 10:42 [facility] [id number]) Hot Pack/Cold Pack Treatment Cold Pack Location R shoulder, ribs & hip Patient Position Hooklying Treatment Duration (minutes) 10 PT-OP-T Assessment and Plan Start: 08/09/19 15:17 Freq: Status: Active Protocol: Document 08/21/19 15:27 [facility] (Rec: 08/21/19 16:12 [facility] [id number]) Physical Therapy Assessment Goals ADLs Short Term Goal (STG) Pt will be able to do make up and fix hair with RUE without inc pain greater than 1 point on VAS scale STG Duration 09/24/19 activities Short Term Goal (STG) Pt will return to hiking and walking 1 mile without inc in pain. STG Duration 09/20/19 Chcf Goal (LTG) Pt will be able to return to working in the yard without issues with shoulder or groin or sense of LOB. LTG Duration 10/09/19 strength Short Term Goal (STG) Pt will be indep with HEP STG Duration 09/09/19 Coating Machine Operator Helper Goal (LTG) Pt will score 5/5 UE and LE strength in order to allow her to return to her typical daily activities and will be able to paint without difficulty. LTG Duration 10/09/19 fall risk Coating Machine Operator Helper Goal (LTG) Pt will improve FGA to score of 23 or greater to show less risk for falls. LTG Duration 10/09/19 Assessment Summary Assessment Pt requires significant cueing re: positioning of shoulder during exercises & for appropriate scapular motion. She had diffficulty with wall roll up and getting back flat on wall. Physical Therapy Plan Frequency and Duration Frequency of Treatment 2x/Week Duration of Treatment 2 months Plan of Care Start Date 08/09/19 Plan of Care End Date 10/09/19 Next Visit Focus/Plan Next Note Type Treatment Note Next Visit Plan advance scapular stability as pt returns from [place]
--- NOTE | 2019-09-06 09:49 | PT.OTN ---
Current Diagnoses Complete rotator cuff tear or rupture of right shoulder, not specified as traumatic (09/06/19) Difficulty in walking, not elsewhere classified (09/06/19) Weakness (09/06/19) Other specified fracture of right pubis, initial encounter for closed fracture (09/06/19) Contusion of right shoulder, initial encounter (09/06/19) Physical Therapy Treatment Note PT-OP-A Visit Information Start: 08/09/19 15:17 Freq: Status: Active Protocol: Document 09/06/19 08:21 [facility] (Rec: 09/06/19 09:49 [facility] [id number]) Out-Patient Physical Therapy Visit Information Visit Information Visit Type Treatment Note Visit Start Time 08:19 Visit Stop Time 08:58 Total Visit Minutes 39 Visit Number 5 Number of MANAGER INVENTORY CONTROL Visits 0 PT-OP-B Current Condition Start: 08/09/19 15:17 Freq: Status: Active Protocol: Document 08/09/19 15:18 [facility] (Rec: 08/09/19 16:03 [facility] [id number]) Current Condition History of Current Condition Onset Date 07/10 Current Complaints R shoulder (RCT)& elbow pain History of Current Condition Pt reports she fractured her pelvis on 07/10 when she was taking a late night walk with her dgt and caught her foot on a curb and fractured her pelvis, and hit shoulder & elbow. Her MRI showed a complete R RCT . She has improved with gait and her ability to use her RUE some now. Pt reports elbow is scutcher tender but no fractures. No history of falls except skiing etc. Prior to this injury pt was painting, 3-5 miles of hiking daily, SUP, and gardening. Pt reports difficulty getting out of the chair Prior Treatments and Tests MRI of shoulder, MD instructed her on pendulums & wall crawls Treatment Goals Patient/Caregiver Goals walk more and hike, paint, SUP , be able to fix hair, return to gardening, get out of chair easily PT-OP-C Subjective Start: 08/09/19 15:17 Freq: Status: Active Protocol: Document 09/06/19 08:21 [facility] (Rec: 09/06/19 09:49 [facility] [id number]) OP-PT Subjective Patient Comments Patient Comments Pt reports she feels like her leg strength is better. Slightly unsteady when going fast and some groin pain at the end of the day but is doing harder trails. Pt reprots compliance with HEP. Pt reports shoulder catches and hurts. Notes she things she can lift a little higher. Some exercises are getting easeier. Patient Reported Progress Improving PT-OP-E Functional Tests Start: 08/09/19 15:17 Freq: Status: Active Protocol: Document 08/09/19 15:18 [facility] (Rec: 08/09/19 17:41 [facility] [id number]) Functional Tests Functional Gait Assessment Score 20 Functional Gait Assessment Impairment 20 to <40% Impaired (Score 19- Rating 24) PT-OP-F Manual Assessment Start: 08/09/19 15:17 Freq: Status: Active Protocol: Document 08/09/19 15:18 [facility] (Rec: 08/09/19 16:03 [facility] [id number]) Manual Assessments Soft Tissue Assessment Soft Tissue Mobility Assessment tightness in parascapular mm R PT-OP-G Mobility & Gait Start: 08/09/19 15:17 Freq: Status: Active Protocol: Document 08/09/19 15:18 [facility] (Rec: 08/09/19 16:03 [facility] [id number]) OP Gait Assessment Comments Gait Comments Pt was using a walker until 2 days ago and then used poles since MD told her don't fall. Uses 2 poles in house most of the time. WIthout poles: slight deviation with ER of pelvis PT-OP-K Range of Motion Start: 08/09/19 15:17 Freq: Status: Active Protocol: Document 08/09/19 15:18 [facility] (Rec: 08/09/19 16:03 [facility] [id number]) Shoulder Goniometric Range of Motion Shoulder Left Active Flexion 156 Extension 70 Abduction 180 Internal Rotation Behind Back (text) T4 Right Active Flexion 64 Extension 62 Abduction 132 External Rotation at 0 degrees Abduction 35 Internal Rotation Behind Back (text) T10 PT-OP-M Strength Start: 08/09/19 15:17 Freq: Status: Active Protocol: Document 08/09/19 15:18 [facility] (Rec: 08/09/19 16:03 [facility] [id number]) Shoulder Strength Shoulder Manual Muscle Testing Right Flexion 2 Poor Extension 4- Good- Abduction (C5) 3 Fair External Rotation 3 Fair Internal Rotation 4- Good- Hip Strength Hip Manual Muscle Testing Left Flexion (L2) 5 Normal Extension (S1) 3+ Fair+ Abduction 4- Good- Adduction 5 Normal External Rotation 4+ Good+ Internal Rotation 4- Good- Right Flexion (L2) 3+ Fair+ Extension (S1) 3+ Fair+ Abduction 3+ Fair+ Adduction 4 Good External Rotation 3+ Fair+ Internal Rotation 3+ Fair+ Knee Strength Knee Manual Muscle Testing Left Flexion (S2) 5 Normal Extension (L3) 5 Normal Right Flexion (S2) 4+ Good+ Extension (L3) 5 Normal Ankle/Foot Strength Ankle and Foot Manual Muscle Testing Left Dorsiflexion (L4) 4+ Good+ Plantarflexion (S1) 5 Normal Right Dorsiflexion (L4) 4+ Good+ Plantarflexion (S1) 5 Normal PT-OP-Q Treatments Start: 08/09/19 15:17 Freq: Status: Active Protocol: Document 09/06/19 08:21 [facility] (Rec: 09/06/19 09:49 [facility] [id number]) Cardio Equipment Recumbent Elliptical ([employer]) Duration (Minutes) 5 Resistance 6 Seat Position 5 Therapeutic Exercises Supine Exercises serratus punch Side bilateral Reps/Minutes 10 Sidelying Exercises ER Sidelying Exercise Name shoulder Side right Reps/Minutes 15 abd Sidelying Exercise Name shoulder Side right Reps/Minutes 20 Sitting Exercises flex Sitting Exercise Name active ROM then sit up with trunk Reps/Minutes 15 Standing Exercises shoulder flex Standing Exercise Name tbar AAROM Side right Reps/Minutes 2x15 sit<>stand Standing Exercise Name slow control Reps/Minutes 10 Manual Therapy Treatment Soft Tissue Mobilization pec & biceps Mobilization Type Rolling,Strumming Intensity/Depth Moderate Joint Mobilizations GH Direction post Grade III PT-OP-R Modalities Start: 08/09/19 15:17 Freq: Status: Active Protocol: Document 08/16/19 09:00 [facility] (Rec: 08/16/19 10:42 [facility] [id number]) Hot Pack/Cold Pack Treatment Cold Pack Location R shoulder, ribs & hip Patient Position Hooklying Treatment Duration (minutes) 10 PT-OP-T Assessment and Plan Start: 08/09/19 15:17 Freq: Status: Active Protocol: Document 09/06/19 08:21 [facility] (Rec: 09/06/19 09:49 [facility] [id number]) Physical Therapy Assessment Goals ADLs Short Term Goal (STG) Pt will be able to do make up and fix hair with RUE without inc pain greater than 1 point on VAS scale STG Duration 09/24/19 activities Short Term Goal (STG) Pt will return to hiking and walking 1 mile without inc in pain. STG Duration 09/20/19 Stocklayer Goal (LTG) Pt will be able to return to working in the yard without issues with shoulder or groin or sense of LOB. LTG Duration 10/09/19 strength Short Term Goal (STG) Pt will be indep with HEP STG Duration 09/09/19 Chcf Goal (LTG) Pt will score 5/5 UE and LE strength in order to allow her to return to her typical daily activities and will be able to paint without difficulty. LTG Duration 10/09/19 fall risk Chcf Goal (LTG) Pt will improve FGA to score of 23 or greater to show less risk for falls. LTG Duration 10/09/19 Assessment Summary Assessment Pt is progressing well with strengthening and just required cueing for slowing down with exercises in order to not be using momentum. Pt very receptive. She is progressing with ROM and was limited only in fwd flex today in standing. Physical Therapy Plan Frequency and Duration Frequency of Treatment 2x/Week Duration of Treatment 2 months Plan of Care Start Date 08/09/19 Plan of Care End Date 10/09/19 Next Visit Focus/Plan Next Note Type Treatment Note Next Visit Plan cont to work on progression of scap stability
--- NOTE | 2019-09-11 16:01 | PT.OTN ---
Current Diagnoses Complete rotator cuff tear or rupture of right shoulder, not specified as traumatic (09/11/19) Difficulty in walking, not elsewhere classified (09/11/19) Weakness (09/11/19) Other specified fracture of right pubis, initial encounter for closed fracture (09/11/19) Contusion of right shoulder, initial encounter (09/11/19) Physical Therapy Treatment Note PT-OP-A Visit Information Start: 08/09/19 15:17 Freq: Status: Active Protocol: Document 09/11/19 14:33 [facility] (Rec: 09/11/19 16:01 [facility] [id number]) Out-Patient Physical Therapy Visit Information Visit Information Visit Type Treatment Note Visit Start Time 14:30 Visit Stop Time 15:12 Total Visit Minutes 42 Visit Number 6 Number of VENDING MACHINE ASSEMBLER Visits 0 PT-OP-B Current Condition Start: 08/09/19 15:17 Freq: Status: Active Protocol: Document 08/09/19 15:18 [facility] (Rec: 08/09/19 16:03 [facility] [id number]) Current Condition History of Current Condition Onset Date 07/10 Current Complaints R shoulder (RCT)& elbow pain History of Current Condition Pt reports she fractured her pelvis on 07/10 when she was taking a late night walk with her dgt and caught her foot on a curb and fractured her pelvis, and hit shoulder & elbow. Her MRI showed a complete R RCT . She has improved with gait and her ability to use her RUE some now. Pt reports elbow is hydrogen cell tender but no fractures. No history of falls except skiing etc. Prior to this injury pt was painting, 3-5 miles of hiking daily, SUP, and gardening. Pt reports difficulty getting out of the chair Prior Treatments and Tests MRI of shoulder, MD instructed her on pendulums & wall crawls Treatment Goals Patient/Caregiver Goals walk more and hike, paint, SUP , be able to fix hair, return to gardening, get out of chair easily PT-OP-C Subjective Start: 08/09/19 15:17 Freq: Status: Active Protocol: Document 09/11/19 14:33 [facility] (Rec: 09/11/19 16:01 [facility] [id number]) OP-PT Subjective Patient Comments Patient Comments Pt reprots she is back to doing her typical hikes. NOtes pelvis is 95% better. Reports her shoulder still catches and that creates pain and cont to have difficulty reaching in front. PT-OP-E Functional Tests Start: 08/09/19 15:17 Freq: Status: Active Protocol: Document 08/09/19 15:18 [facility] (Rec: 08/09/19 17:41 [facility] [id number]) Functional Tests Functional Gait Assessment Score 20 Functional Gait Assessment Impairment 20 to <40% Impaired (Score 19- Rating 24) PT-OP-F Manual Assessment Start: 08/09/19 15:17 Freq: Status: Active Protocol: Document 08/09/19 15:18 [facility] (Rec: 08/09/19 16:03 [facility] [id number]) Manual Assessments Soft Tissue Assessment Soft Tissue Mobility Assessment tightness in parascapular mm R PT-OP-G Mobility & Gait Start: 08/09/19 15:17 Freq: Status: Active Protocol: Document 08/09/19 15:18 [facility] (Rec: 08/09/19 16:03 [facility] [id number]) OP Gait Assessment Comments Gait Comments Pt was using a walker until 2 days ago and then used poles since MD told her don't fall. Uses 2 poles in house most of the time. WIthout poles: slight deviation with ER of pelvis PT-OP-K Range of Motion Start: 08/09/19 15:17 Freq: Status: Active Protocol: Document 08/09/19 15:18 [facility] (Rec: 08/09/19 16:03 [facility] [id number]) Shoulder Goniometric Range of Motion Shoulder Left Active Flexion 156 Extension 70 Abduction 180 Internal Rotation Behind Back (text) T4 Right Active Flexion 64 Extension 62 Abduction 132 External Rotation at 0 degrees Abduction 35 Internal Rotation Behind Back (text) T10 PT-OP-M Strength Start: 08/09/19 15:17 Freq: Status: Active Protocol: Document 08/09/19 15:18 [facility] (Rec: 08/09/19 16:03 [facility] [id number]) Shoulder Strength Shoulder Manual Muscle Testing Right Flexion 2 Poor Extension 4- Good- Abduction (C5) 3 Fair External Rotation 3 Fair Internal Rotation 4- Good- Hip Strength Hip Manual Muscle Testing Left Flexion (L2) 5 Normal Extension (S1) 3+ Fair+ Abduction 4- Good- Adduction 5 Normal External Rotation 4+ Good+ Internal Rotation 4- Good- Right Flexion (L2) 3+ Fair+ Extension (S1) 3+ Fair+ Abduction 3+ Fair+ Adduction 4 Good External Rotation 3+ Fair+ Internal Rotation 3+ Fair+ Knee Strength Knee Manual Muscle Testing Left Flexion (S2) 5 Normal Extension (L3) 5 Normal Right Flexion (S2) 4+ Good+ Extension (L3) 5 Normal Ankle/Foot Strength Ankle and Foot Manual Muscle Testing Left Dorsiflexion (L4) 4+ Good+ Plantarflexion (S1) 5 Normal Right Dorsiflexion (L4) 4+ Good+ Plantarflexion (S1) 5 Normal PT-OP-Q Treatments Start: 08/09/19 15:17 Freq: Status: Active Protocol: Document 09/11/19 14:33 [facility] (Rec: 09/11/19 16:01 [facility] [id number]) Cardio Equipment Recumbent Elliptical (Ideacentric) Duration (Minutes) 5 Resistance 6 Seat Position 5 Therapeutic Exercises Supine Exercises rotation Supine Exercise Name IR/ER Side right Equipment Used 2# Reps/Minutes 2x10 serratus punch Side bilateral Reps/Minutes 10x2 Comments cueing to avoid scapular elevation Prone Exercises 90/90 ER Prone Exercise Name over tball Side bilateral Equipment Used 0# Reps/Minutes 2x10 ext Prone Exercise Name over tball Side bilateral Equipment Used 1# Reps/Minutes 20 scaption Prone Exercise Name overtball Side bilateral Equipment Used 0# Reps/Minutes 15 HAbd Prone Exercise Name overtball Side bilateral Equipment Used 1# Reps/Minutes 2x10 Sidelying Exercises ER Sidelying Exercise Name shoulder Side right Reps/Minutes 15 Manual Therapy Treatment Soft Tissue Mobilization teres Body Location teres major & minor & subscapularis Mobilization Type Strumming,Sustained Pressure Intensity/Depth Moderate PT-OP-R Modalities Start: 08/09/19 15:17 Freq: Status: Active Protocol: Document 08/16/19 09:00 [facility] (Rec: 08/16/19 10:42 [facility] [id number]) Hot Pack/Cold Pack Treatment Cold Pack Location R shoulder, ribs & hip Patient Position Hooklying Treatment Duration (minutes) 10 PT-OP-T Assessment and Plan Start: 08/09/19 15:17 Freq: Status: Active Protocol: Document 09/11/19 14:33 [facility] (Rec: 09/11/19 16:01 [facility] [id number]) Physical Therapy Assessment Goals ADLs Short Term Goal (STG) Pt will be able to do make up and fix hair with RUE without inc pain greater than 1 point on VAS scale STG Duration 09/24/19 activities Short Term Goal (STG) Pt will return to hiking and walking 1 mile without inc in pain. STG Duration 09/20/19 Custodial Goal (LTG) Pt will be able to return to working in the yard without issues with shoulder or groin or sense of LOB. LTG Duration 10/09/19 strength Short Term Goal (STG) Pt will be indep with HEP STG Duration 09/09/19 Custodial Goal (LTG) Pt will score 5/5 UE and LE strength in order to allow her to return to her typical daily activities and will be able to paint without difficulty. LTG Duration 10/09/19 fall risk Custodial Goal (LTG) Pt will improve FGA to score of 23 or greater to show less risk for falls. LTG Duration 10/09/19 Assessment Summary Assessment Pt requires cueing with exercises for scapulohumeral rhythm and for slowing down exercises. She is able to tolerate eccentric ER in supine with wt but cannot do ER against gravity or against resistance yet. Improved IR PROM after manual treatment. Physical Therapy Plan Frequency and Duration Frequency of Treatment 2x/Week Duration of Treatment 2 months Plan of Care Start Date 08/09/19 Plan of Care End Date 10/09/19 Next Visit Focus/Plan Next Note Type Treatment Note Next Visit Plan cont to work on progression of scap stability; review prone exercises, cont to work on soft tissue in pecs, & post shoulder & also GH mobs; try UBE at start for ROM instead of stepper
--- NOTE | 2019-09-13 16:28 | PT.OTN ---
Current Diagnoses Complete rotator cuff tear or rupture of right shoulder, not specified as traumatic (09/13/19) Difficulty in walking, not elsewhere classified (09/13/19) Weakness (09/13/19) Other specified fracture of right pubis, initial encounter for closed fracture (09/13/19) Contusion of right shoulder, initial encounter (09/13/19) Physical Therapy Treatment Note PT-OP-A Visit Information Start: 08/09/19 15:17 Freq: Status: Active Protocol: Document 09/13/19 15:15 [facility] (Rec: 09/13/19 16:28 [facility] [id number]) Out-Patient Physical Therapy Visit Information Visit Information Visit Type Treatment Note Visit Start Time 15:15 Visit Stop Time 16:00 Total Visit Minutes 45 Visit Number 7 Number of DEAF TEACHER Visits 0 PT-OP-B Current Condition Start: 08/09/19 15:17 Freq: Status: Active Protocol: Document 08/09/19 15:18 [facility] (Rec: 08/09/19 16:03 [facility] [id number]) Current Condition History of Current Condition Onset Date 07/10 Current Complaints R shoulder (RCT)& elbow pain History of Current Condition Pt reports she fractured her pelvis on 07/10 when she was taking a late night walk with her dgt and caught her foot on a curb and fractured her pelvis, and hit shoulder & elbow. Her MRI showed a complete R RCT . She has improved with gait and her ability to use her RUE some now. 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 No history of falls except skiing etc. Prior to this injury pt was painting, 3-5 miles of hiking daily, SUP, and gardening. Pt reports difficulty getting out of the chair Prior Treatments and Tests MRI of shoulder, MD instructed her on pendulums & wall crawls Treatment Goals Patient/Caregiver Goals walk more and hike, paint, SUP , be able to fix hair, return to gardening, get out of chair easily PT-OP-C Subjective Start: 08/09/19 15:17 Freq: Status: Active Protocol: Document 09/13/19 15:15 [facility] (Rec: 09/13/19 16:28 [facility] [id number]) OP-PT Subjective Patient Comments Patient Comments Pt hiked around [place] and no problems with pelvis. Feels she's near 100% with pelvis. Shoulder has residual catch and ache with forward flexion. Patient Reported Progress Improving PT-OP-E Functional Tests Start: 08/09/19 15:17 Freq: Status: Active Protocol: Document 08/09/19 15:18 [facility] (Rec: 08/09/19 17:41 [facility] [id number]) Functional Tests Functional Gait Assessment Score 20 Functional Gait Assessment Impairment 20 to <40% Impaired (Score 19- Rating 24) PT-OP-F Manual Assessment Start: 08/09/19 15:17 Freq: Status: Active Protocol: Document 08/09/19 15:18 [facility] (Rec: 08/09/19 16:03 [facility] [id number]) Manual Assessments Soft Tissue Assessment Soft Tissue Mobility Assessment tightness in parascapular mm R PT-OP-G Mobility & Gait Start: 08/09/19 15:17 Freq: Status: Active Protocol: Document 08/09/19 15:18 [facility] (Rec: 08/09/19 16:03 [facility] [id number]) OP Gait Assessment Comments Gait Comments Pt was using a walker until 2 days ago and then used poles since MD told her don't fall. Uses 2 poles in house most of the time. WIthout poles: slight deviation with ER of pelvis PT-OP-K Range of Motion Start: 08/09/19 15:17 Freq: Status: Active Protocol: Document 08/09/19 15:18 [facility] (Rec: 08/09/19 16:03 [facility] [id number]) Shoulder Goniometric Range of Motion Shoulder Left Active Flexion 156 Extension 70 Abduction 180 Internal Rotation Behind Back (text) T4 Right Active Flexion 64 Extension 62 Abduction 132 External Rotation at 0 degrees Abduction 35 Internal Rotation Behind Back (text) T10 PT-OP-M Strength Start: 08/09/19 15:17 Freq: Status: Active Protocol: Document 08/09/19 15:18 [facility] (Rec: 08/09/19 16:03 [facility] [id number]) Shoulder Strength Shoulder Manual Muscle Testing Right Flexion 2 Poor Extension 4- Good- Abduction (C5) 3 Fair External Rotation 3 Fair Internal Rotation 4- Good- Hip Strength Hip Manual Muscle Testing Left Flexion (L2) 5 Normal Extension (S1) 3+ Fair+ Abduction 4- Good- Adduction 5 Normal External Rotation 4+ Good+ Internal Rotation 4- Good- Right Flexion (L2) 3+ Fair+ Extension (S1) 3+ Fair+ Abduction 3+ Fair+ Adduction 4 Good External Rotation 3+ Fair+ Internal Rotation 3+ Fair+ Knee Strength Knee Manual Muscle Testing Left Flexion (S2) 5 Normal Extension (L3) 5 Normal Right Flexion (S2) 4+ Good+ Extension (L3) 5 Normal Ankle/Foot Strength Ankle and Foot Manual Muscle Testing Left Dorsiflexion (L4) 4+ Good+ Plantarflexion (S1) 5 Normal Right Dorsiflexion (L4) 4+ Good+ Plantarflexion (S1) 5 Normal PT-OP-Q Treatments Start: 08/09/19 15:17 Freq: Status: Active Protocol: Document 09/13/19 15:15 [facility] (Rec: 09/13/19 16:28 [facility] [id number]) Cardio Equipment Upper Body Ergometer (UBE) Duration (Minutes) 3 Other had pt set own pace, min resistance, reversed q30 secs. Recumbent Elliptical (BiodChirpme) Other discontinue Therapeutic Exercises Prone Exercises 90/90 ER Prone Exercise Name over tball Side bilateral Equipment Used 0# Reps/Minutes 2x10 Comments overall did well with ball ex, occ cuing for pacing. ext Prone Exercise Name over tball Side bilateral Equipment Used 1# Reps/Minutes 20 scaption Prone Exercise Name overtball Side bilateral Equipment Used 0# Reps/Minutes 15 HAbd Prone Exercise Name overtball Side bilateral Equipment Used 1# Reps/Minutes 2x10 Manual Therapy Treatment Soft Tissue Mobilization teres Body Location teres major & minor & subscapularis Mobilization Type Strumming,Sustained Pressure Intensity/Depth Moderate Joint Mobilizations GH Joint GHJ Direction post Grade III Body Position Hooklying Manual Techniques 1 Type Manual Strengthening Body Position Hooklying Comments MR strengthening shlder extension followed by active flexion. MR shlder add followed by active abd, MR IR followed by active ER. Stabilization scapula as needed. PT-OP-R Modalities Start: 08/09/19 15:17 Freq: Status: Active Protocol: Document 08/16/19 09:00 [facility] (Rec: 08/16/19 10:42 [facility] [id number]) Hot Pack/Cold Pack Treatment Cold Pack Location R shoulder, ribs & hip Patient Position Hooklying Treatment Duration (minutes) 10 PT-OP-T Assessment and Plan Start: 10/10/19 15:17 Freq: Status: Active Protocol: Document 09/13/19 15:15 [facility] (Rec: 09/13/19 16:28 [facility] [id number]) Physical Therapy Assessment Goals ADLs Short Term Goal (STG) Pt will be able to do make up and fix hair with RUE without inc pain greater than 1 point on VAS scale STG Duration 09/24/19 activities Short Term Goal (STG) Pt will return to hiking and walking 1 mile without inc in pain. STG Duration 09/20/19 Group Home Goal (LTG) Pt will be able to return to working in the yard without issues with shoulder or groin or sense of LOB. LTG Duration 10/09/19 strength Short Term Goal (STG) Pt will be indep with HEP STG Duration 09/09/19 Group Home Goal (LTG) Pt will score 5/5 UE and LE strength in order to allow her to return to her typical daily activities and will be able to paint without difficulty. LTG Duration 10/09/19 fall risk Superintendent [employer] Goal (LTG) Pt will improve FGA to score of 23 or greater to show less risk for falls. LTG Duration 10/09/19 Progress Towards Goals Progress Towards Goals Progressing Toward Goals Progress Comments Pt hiking and walking without pain for 2-3 miles. Assessment Summary Assessment Understood previously instructed exercises over physioball. Cuing for pacing of her exercises. Attaining forward flexion x8 without catching or pain after stabilization with MR exercises. Did well with UBE. Physical Therapy Plan Frequency and Duration Frequency of Treatment 2x/Week Duration of Treatment 2 months Plan of Care Start Date 08/09/19 Plan of Care End Date 10/09/19 Next Visit Focus/Plan Next Note Type Treatment Note Next Visit Plan cont to work on progression of scap stability; review prone exercises, cont to work on soft tissue in pecs, & post shoulder & also GH mobs
--- NOTE | 2019-09-18 17:46 | PT.OTN ---
Current Diagnoses Complete rotator cuff tear or rupture of right shoulder, not specified as traumatic (09/18/19) Difficulty in walking, not elsewhere classified (09/18/19) Weakness (09/18/19) Other specified fracture of right pubis, initial encounter for closed fracture (09/18/19) Contusion of right shoulder, initial encounter (09/18/19) Physical Therapy Treatment Note PT-OP-A Visit Information Start: 08/09/19 15:17 Freq: Status: Active Protocol: Document 09/18/19 17:23 [facility] (Rec: 09/18/19 17:46 [facility] [id number]) Out-Patient Physical Therapy Visit Information Visit Information Visit Type Treatment Note Visit Start Time 14:30 Visit Stop Time 15:25 Total Visit Minutes 55 Visit Number 8 Number of COOKER MEAL Visits 0 PT-OP-B Current Condition Start: 08/09/19 15:17 Freq: Status: Active Protocol: Document 08/09/19 15:18 [facility] (Rec: 08/09/19 16:03 [facility] [id number]) Current Condition History of Current Condition Onset Date 07/10 Current Complaints R shoulder (RCT)& elbow pain History of Current Condition Pt reports she fractured her pelvis on 07/10 when she was taking a late night walk with her dgt and caught her foot on a curb and fractured her pelvis, and hit shoulder & elbow. Her MRI showed a complete R RCT . She has improved with gait and her ability to use her RUE some now. 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 No history of falls except skiing etc. Prior to this injury pt was painting, 3-5 miles of hiking daily, SUP, and gardening. Pt reports difficulty getting out of the chair Prior Treatments and Tests MRI of shoulder, MD instructed her on pendulums & wall crawls Treatment Goals Patient/Caregiver Goals walk more and hike, paint, SUP , be able to fix hair, return to gardening, get out of chair easily PT-OP-C Subjective Start: 08/09/19 15:17 Freq: Status: Active Protocol: Document 09/18/19 17:23 [facility] (Rec: 09/18/19 17:46 [facility] [id number]) OP-PT Subjective Patient Comments Patient Comments Pt reports doing well after last treatment with this PT and reports other session went well but she slightly backtracked since. PT-OP-E Functional Tests Start: 08/09/19 15:17 Freq: Status: Active Protocol: Document 08/09/19 15:18 [facility] (Rec: 08/09/19 17:41 [facility] [id number]) Functional Tests Functional Gait Assessment Score 20 Functional Gait Assessment Impairment 20 to <40% Impaired (Score 19- Rating 24) PT-OP-F Manual Assessment Start: 08/09/19 15:17 Freq: Status: Active Protocol: Document 08/09/19 15:18 [facility] (Rec: 08/09/19 16:03 [facility] [id number]) Manual Assessments Soft Tissue Assessment Soft Tissue Mobility Assessment tightness in parascapular mm R PT-OP-G Mobility & Gait Start: 08/09/19 15:17 Freq: Status: Active Protocol: Document 08/09/19 15:18 [facility] (Rec: 08/09/19 16:03 [facility] [id number]) OP Gait Assessment Comments Gait Comments Pt was using a walker until 2 days ago and then used poles since MD told her don't fall. Uses 2 poles in house most of the time. WIthout poles: slight deviation with ER of pelvis PT-OP-K Range of Motion Start: 08/09/19 15:17 Freq: Status: Active Protocol: Document 08/09/19 15:18 [facility] (Rec: 08/09/19 16:03 [facility] [id number]) Shoulder Goniometric Range of Motion Shoulder Left Active Flexion 156 Extension 70 Abduction 180 Internal Rotation Behind Back (text) T4 Right Active Flexion 64 Extension 62 Abduction 132 External Rotation at 0 degrees Abduction 35 Internal Rotation Behind Back (text) T10 PT-OP-M Strength Start: 08/09/19 15:17 Freq: Status: Active Protocol: Document 08/09/19 15:18 [facility] (Rec: 08/09/19 16:03 [facility] [id number]) Shoulder Strength Shoulder Manual Muscle Testing Right Flexion 2 Poor Extension 4- Good- Abduction (C5) 3 Fair External Rotation 3 Fair Internal Rotation 4- Good- Hip Strength Hip Manual Muscle Testing Left Flexion (L2) 5 Normal Extension (S1) 3+ Fair+ Abduction 4- Good- Adduction 5 Normal External Rotation 4+ Good+ Internal Rotation 4- Good- Right Flexion (L2) 3+ Fair+ Extension (S1) 3+ Fair+ Abduction 3+ Fair+ Adduction 4 Good External Rotation 3+ Fair+ Internal Rotation 3+ Fair+ Knee Strength Knee Manual Muscle Testing Left Flexion (S2) 5 Normal Extension (L3) 5 Normal Right Flexion (S2) 4+ Good+ Extension (L3) 5 Normal Ankle/Foot Strength Ankle and Foot Manual Muscle Testing Left Dorsiflexion (L4) 4+ Good+ Plantarflexion (S1) 5 Normal Right Dorsiflexion (L4) 4+ Good+ Plantarflexion (S1) 5 Normal PT-OP-Q Treatments Start: 08/09/19 15:17 Freq: Status: Active Protocol: Document 09/18/19 17:23 [facility] (Rec: 09/18/19 17:46 [facility] [id number]) Cardio Equipment Upper Body Ergometer (UBE) Duration (Minutes) 5 RPM 90 Height 4 Other fwd/back Therapeutic Exercises Prone Exercises 90/90 ER Prone Exercise Name over tball Side bilateral Equipment Used 0# Reps/Minutes 2x10 Comments overall did well with ball ex, occ cuing for pacing. ext Prone Exercise Name over tball Side bilateral Equipment Used 2# Reps/Minutes 20 scaption Prone Exercise Name overtball Side bilateral Equipment Used 0# Reps/Minutes 2x10 Comments one set palm down and other thumb down HAbd Prone Exercise Name overtball Side bilateral Equipment Used 1# Reps/Minutes 2x10 Manual Therapy Treatment Soft Tissue Mobilization IR Body Location along table w/circumfrential MFR, post delt release Habd Body Location c/r w/STM onto pecs & post delt teres Body Location teres major & minor & subscapularis Mobilization Type Strumming,Sustained Pressure Intensity/Depth Moderate Joint Mobilizations GH Joint GHJ Direction post FM Body Position Hooklying Comments w/neuro re edu after PT-OP-R Modalities Start: 08/09/19 15:17 Freq: Status: Active Protocol: Document 09/18/19 17:23 [facility] (Rec: 09/18/19 17:46 [facility] [id number]) Hot Pack/Cold Pack Treatment Cold Pack Location R shoulder Patient Position Hooklying Treatment Duration (minutes) 10 PT-OP-T Assessment and Plan Start: 08/09/19 15:17 Freq: Status: Active Protocol: Document 09/18/19 17:23 [facility] (Rec: 09/18/19 17:46 [facility] [id number]) Physical Therapy Assessment Goals ADLs Short Term Goal (STG) Pt will be able to do make up and fix hair with RUE without inc pain greater than 1 point on VAS scale STG Duration 09/24/19 activities Short Term Goal (STG) Pt will return to hiking and walking 1 mile without inc in pain. STG Duration 09/20/19 Senior Care Goal (LTG) Pt will be able to return to working in the yard without issues with shoulder or groin or sense of LOB. LTG Duration 10/09/19 strength Short Term Goal (STG) Pt will be indep with HEP STG Duration 09/09/19 Senior Care Goal (LTG) Pt will score 5/5 UE and LE strength in order to allow her to return to her typical daily activities and will be able to paint without difficulty. LTG Duration 10/09/19 fall risk Senior Care Goal (LTG) Pt will improve FGA to score of 23 or greater to show less risk for falls. LTG Duration 10/09/19 Assessment Summary Assessment Pt had improved ability to do HAbd today after manual work. She required cueing for scapular position & GH positoin during motion but improved in her ability when cued and passive range was restored with manual treatment with improved end feel. She required less cueing with all exercises today. Physical Therapy Plan Frequency and Duration Frequency of Treatment 2x/Week Duration of Treatment 2 months Plan of Care Start Date 08/09/19 Plan of Care End Date 10/09/19 Therapeutic Interventions Therapeutic Interventions Aquatic Therapy,Balance Training,Gait Training,Home Exercise Program,Joint Mobilizations,Manual Therapy, Neuromuscular Re-education, Patient/Caregiver Education, Self-Care/Home Management,Soft Tissue Mobilization,Taping, Therapeutic Activities, Therapeutic Exercises Modalities Cold Pack/Ice Massage,Electric Stimulation,Hot Packs, Infrared Therapy,Iontophoresis ,Ultrasound Next Visit Focus/Plan Next Note Type Treatment Note Next Visit Plan Cont to work on ability to HAbd, go through GH glides , try quadruped positioning & serratus punch
--- NOTE | 2019-09-21 16:58 | PT.OTN ---
Current Diagnoses Complete rotator cuff tear or rupture of right shoulder, not specified as traumatic (09/21/19) Difficulty in walking, not elsewhere classified (09/21/19) Weakness (09/21/19) Other specified fracture of right pubis, initial encounter for closed fracture (09/21/19) Contusion of right shoulder, initial encounter (09/21/19) Physical Therapy Treatment Note PT-OP-A Visit Information Start: 08/09/19 15:17 Freq: Status: Active Protocol: Document 09/21/19 15:15 [facility] (Rec: 09/21/19 16:31 [facility] [id number]) Out-Patient Physical Therapy Visit Information Visit Information Visit Type Treatment Note Visit Start Time 15:15 Visit Stop Time 16:02 Total Visit Minutes 47 Visit Number 9 Number of APPLICATIONS ENGINEER Visits 1 PT-OP-B Current Condition Start: 08/09/19 15:17 Freq: Status: Active Protocol: Document 08/09/19 15:18 [facility] (Rec: 08/09/19 16:03 [facility] [id number]) Current Condition History of Current Condition Onset Date 07/10 Current Complaints R shoulder (RCT)& elbow pain History of Current Condition Pt reports she fractured her pelvis on 07/10 when she was taking a late night walk with her dgt and caught her foot on a curb and fractured her pelvis, and hit shoulder & elbow. Her MRI showed a complete R RCT . She has improved with gait and her ability to use her RUE some now. Pt reports elbow is tipple tender but no fractures. No history of falls except skiing etc. Prior to this injury pt was painting, 3-5 miles of hiking daily, SUP, and gardening. Pt reports difficulty getting out of the chair Prior Treatments and Tests MRI of shoulder, MD instructed her on pendulums & wall crawls Treatment Goals Patient/Caregiver Goals walk more and hike, paint, SUP , be able to fix hair, return to gardening, get out of chair easily PT-OP-C Subjective Start: 08/09/19 15:17 Freq: Status: Active Protocol: Document 09/21/19 15:15 [facility] (Rec: 09/21/19 16:31 [facility] [id number]) OP-PT Subjective Patient Comments Patient Comments Pt reports that she is doing well and is happy with her progress so far. Offers that she is still experiencing pain with activities involving scaption and internal rotation . Patient Reported Progress Improving PT-OP-E Functional Tests Start: 08/09/19 15:17 Freq: Status: Active Protocol: Document 08/09/19 15:18 [facility] (Rec: 08/09/19 17:41 [facility] [id number]) Functional Tests Functional Gait Assessment Score 20 Functional Gait Assessment Impairment 20 to <40% Impaired (Score 19- Rating 24) PT-OP-F Manual Assessment Start: 08/09/19 15:17 Freq: Status: Active Protocol: Document 08/09/19 15:18 [facility] (Rec: 08/09/19 16:03 [facility] [id number]) Manual Assessments Soft Tissue Assessment Soft Tissue Mobility Assessment tightness in parascapular mm R PT-OP-G Mobility & Gait Start: 08/09/19 15:17 Freq: Status: Active Protocol: Document 08/09/19 15:18 [facility] (Rec: 08/09/19 16:03 [facility] [id number]) OP Gait Assessment Comments Gait Comments Pt was using a walker until 2 days ago and then used poles since MD told her don't fall. Uses 2 poles in house most of the time. WIthout poles: slight deviation with ER of pelvis PT-OP-K Range of Motion Start: 08/09/19 15:17 Freq: Status: Active Protocol: Document 08/09/19 15:18 [facility] (Rec: 08/09/19 16:03 [facility] [id number]) Shoulder Goniometric Range of Motion Shoulder Left Active Flexion 156 Extension 70 Abduction 180 Internal Rotation Behind Back (text) T4 Right Active Flexion 64 Extension 62 Abduction 132 External Rotation at 0 degrees Abduction 35 Internal Rotation Behind Back (text) T10 PT-OP-M Strength Start: 08/09/19 15:17 Freq: Status: Active Protocol: Document 08/09/19 15:18 [facility] (Rec: 08/09/19 16:03 [facility] [id number]) Shoulder Strength Shoulder Manual Muscle Testing Right Flexion 2 Poor Extension 4- Good- Abduction (C5) 3 Fair External Rotation 3 Fair Internal Rotation 4- Good- Hip Strength Hip Manual Muscle Testing Left Flexion (L2) 5 Normal Extension (S1) 3+ Fair+ Abduction 4- Good- Adduction 5 Normal External Rotation 4+ Good+ Internal Rotation 4- Good- Right Flexion (L2) 3+ Fair+ Extension (S1) 3+ Fair+ Abduction 3+ Fair+ Adduction 4 Good External Rotation 3+ Fair+ Internal Rotation 3+ Fair+ Knee Strength Knee Manual Muscle Testing Left Flexion (S2) 5 Normal Extension (L3) 5 Normal Right Flexion (S2) 4+ Good+ Extension (L3) 5 Normal Ankle/Foot Strength Ankle and Foot Manual Muscle Testing Left Dorsiflexion (L4) 4+ Good+ Plantarflexion (S1) 5 Normal Right Dorsiflexion (L4) 4+ Good+ Plantarflexion (S1) 5 Normal PT-OP-Q Treatments Start: 08/09/19 15:17 Freq: Status: Active Protocol: Document 09/21/19 15:15 [facility] (Rec: 09/21/19 16:31 [facility] [id number]) Cardio Equipment Upper Body Ergometer (UBE) Duration (Minutes) 5 RPM 90 Height 4 Other fwd/back Therapeutic Exercises Standing Exercises shoulder flex Standing Exercise Name Shoulder abduction, scaption, flexion Side bilateral Resistance 1# Equipment Used 1# hand weight Reps/Minutes 1x10 Comments Reduced to no weight for scaption and flexion Other Exercises Wall walk ups Side right Reps/Minutes 2x15 sec hold Comments abduction and flexion Manual Therapy Treatment Soft Tissue Mobilization teres Body Location teres major & minor & subscapularis Mobilization Type Strumming,Sustained Pressure Intensity/Depth Moderate pec & biceps Mobilization Type Cross-Friction,Strumming Intensity/Depth Moderate Body Position Supine Comments Instructed pt how to perform biceps tendon cross friction UT, LS Mobilization Type Rolling Intensity/Depth Moderate Body Position Supine Joint Mobilizations GH Joint GHJ Direction posterior and inferior Body Position Hooklying Self-Care/Home Management Treatment Education Patient Education Body Mechanics,Pain Management ,Posture Activities Self-Care/Home Management Activities Cross friction to biceps tendon, door way and towel roll pec stretch PT-OP-R Modalities Start: 08/09/19 15:17 Freq: Status: Active Protocol: Document 09/18/19 17:23 [facility] (Rec: 09/18/19 17:46 [facility] [id number]) Hot Pack/Cold Pack Treatment Cold Pack Location R shoulder Patient Position Hooklying Treatment Duration (minutes) 10 PT-OP-T Assessment and Plan Start: 08/09/19 15:17 Freq: Status: Active Protocol: Document 09/21/19 15:15 [facility] (Rec: 09/21/19 16:31 [facility] [id number]) Physical Therapy Assessment Assessment Summary Assessment Pt reported overall improved flexion and abduction. Responded well to manual therapy, specifically STM to biceps tendon, pec, teres major, teres minor, subscapularis, and upper traps . Verbalized relief during posterior and inferior GH joint mobilizations. Required cuing for scapular and core stabilization during shoulder strengthening exercises, and had decreased pain while performing scaption and flexion with proper stabilization. Instructed pt how to perform self STM of biceps tendon and pec stretch to decrease pain and increase tissue extensibility. Physical Therapy Plan Frequency and Duration Frequency of Treatment 2x/Week Duration of Treatment 2 months Plan of Care Start Date 08/09/19 Plan of Care End Date 10/09/19 Therapeutic Interventions Therapeutic Interventions Aquatic Therapy,Balance Training,Gait Training,Home Exercise Program,Joint Mobilizations,Manual Therapy, Neuromuscular Re-education, Patient/Caregiver Education, Self-Care/Home Management,Soft Tissue Mobilization,Taping, Therapeutic Activities, Therapeutic Exercises Modalities Cold Pack/Ice Massage,Electric Stimulation,Hot Packs, Infrared Therapy,Iontophoresis ,Ultrasound Next Visit Focus/Plan Next Note Type Treatment Note Next Visit Plan Continue strengthening of periscapular musculature and GH joint mobilizations. May benefit from scapular PNF to facilitate NM re-ed. reviewed by Evelyn Rodgers PTA
--- NOTE | 2019-09-24 16:50 | PT.OTN ---
Current Diagnoses Complete rotator cuff tear or rupture of right shoulder, not specified as traumatic (09/24/19) Difficulty in walking, not elsewhere classified (09/24/19) Weakness (09/24/19) Other specified fracture of right pubis, initial encounter for closed fracture (09/24/19) Contusion of right shoulder, initial encounter (09/24/19) Physical Therapy Treatment Note PT-OP-A Visit Information Start: 08/09/19 15:17 Freq: Status: Active Protocol: Document 09/24/19 15:15 LJ (Rec: 09/24/19 16:50 LJ [email or web address]) Out-Patient Physical Therapy Visit Information Visit Information Visit Type Treatment Note Visit Start Time 15:15 Visit Stop Time 16:00 Total Visit Minutes 45 Visit Number 10 Number of SHOEBLACK Visits 2 PT-OP-B Current Condition Start: 08/09/19 15:17 Freq: Status: Active Protocol: Document 08/09/19 15:18 [facility] (Rec: 08/09/19 16:03 [facility] [id number]) Current Condition History of Current Condition Onset Date 07/10 Current Complaints R shoulder (RCT)& elbow pain History of Current Condition Pt reports she fractured her pelvis on 07/10 when she was taking a late night walk with her dgt and caught her foot on a curb and fractured her pelvis, and hit shoulder & elbow. Her MRI showed a complete R RCT . She has improved with gait and her ability to use her RUE some now. Pt reports elbow is oven tender but no fractures. No history of falls except skiing etc. Prior to this injury pt was painting, 3-5 miles of hiking daily, SUP, and gardening. Pt reports difficulty getting out of the chair Prior Treatments and Tests MRI of shoulder, MD instructed her on pendulums & wall crawls Treatment Goals Patient/Caregiver Goals walk more and hike, paint, SUP , be able to fix hair, return to gardening, get out of chair easily PT-OP-C Subjective Start: 08/09/19 15:17 Freq: Status: Active Protocol: Document 09/24/19 15:15 LJ (Rec: 09/24/19 16:50 LJ [email or web address]) OP-PT Subjective Patient Comments Patient Comments Pt states she feels she is getting stronger but certain movements make her shoulder muscles grumpy. PT-OP-E Functional Tests Start: 08/09/19 15:17 Freq: Status: Active Protocol: Document 08/09/19 15:18 [facility] (Rec: 08/09/19 17:41 [facility] [id number]) Functional Tests Functional Gait Assessment Score 20 Functional Gait Assessment Impairment 20 to <40% Impaired (Score 19- Rating 24) PT-OP-F Manual Assessment Start: 08/09/19 15:17 Freq: Status: Active Protocol: Document 08/09/19 15:18 [facility] (Rec: 08/09/19 16:03 [facility] [id number]) Manual Assessments Soft Tissue Assessment Soft Tissue Mobility Assessment tightness in parascapular mm R PT-OP-G Mobility & Gait Start: 08/09/19 15:17 Freq: Status: Active Protocol: Document 08/09/19 15:18 [facility] (Rec: 08/09/19 16:03 [facility] [id number]) OP Gait Assessment Comments Gait Comments Pt was using a walker until 2 days ago and then used poles since MD told her don't fall. Uses 2 poles in house most of the time. WIthout poles: slight deviation with ER of pelvis PT-OP-K Range of Motion Start: 08/09/19 15:17 Freq: Status: Active Protocol: Document 08/09/19 15:18 [facility] (Rec: 08/09/19 16:03 [facility] [id number]) Shoulder Goniometric Range of Motion Shoulder Left Active Flexion 156 Extension 70 Abduction 180 Internal Rotation Behind Back (text) T4 Right Active Flexion 64 Extension 62 Abduction 132 External Rotation at 0 degrees Abduction 35 Internal Rotation Behind Back (text) T10 PT-OP-M Strength Start: 08/09/19 15:17 Freq: Status: Active Protocol: Document 08/09/19 15:18 [facility] (Rec: 08/09/19 16:03 [facility] [id number]) Shoulder Strength Shoulder Manual Muscle Testing Right Flexion 2 Poor Extension 4- Good- Abduction (C5) 3 Fair External Rotation 3 Fair Internal Rotation 4- Good- Hip Strength Hip Manual Muscle Testing Left Flexion (L2) 5 Normal Extension (S1) 3+ Fair+ Abduction 4- Good- Adduction 5 Normal External Rotation 4+ Good+ Internal Rotation 4- Good- Right Flexion (L2) 3+ Fair+ Extension (S1) 3+ Fair+ Abduction 3+ Fair+ Adduction 4 Good External Rotation 3+ Fair+ Internal Rotation 3+ Fair+ Knee Strength Knee Manual Muscle Testing Left Flexion (S2) 5 Normal Extension (L3) 5 Normal Right Flexion (S2) 4+ Good+ Extension (L3) 5 Normal Ankle/Foot Strength Ankle and Foot Manual Muscle Testing Left Dorsiflexion (L4) 4+ Good+ Plantarflexion (S1) 5 Normal Right Dorsiflexion (L4) 4+ Good+ Plantarflexion (S1) 5 Normal PT-OP-Q Treatments Start: 08/09/19 15:17 Freq: Status: Active Protocol: Document 09/24/19 15:15 LJ (Rec: 09/24/19 16:50 LJ [email or web address]) Cardio Equipment Upper Body Ergometer (UBE) Duration (Minutes) 5 RPM 90 Height 4 Other fwd/back Therapeutic Exercises Standing Exercises shoulder flex Standing Exercise Name Shoulder abduction, scaption, flexion Side bilateral Reps/Minutes 1x8 Other Exercises wall angels Side bilateral Reps/Minutes 2 Comments causes pain at 90* shoulder abd Manual Therapy Treatment Soft Tissue Mobilization teres Body Location teres major & minor & subscapularis Mobilization Type Strumming,Sustained Pressure Intensity/Depth Moderate pec & biceps Mobilization Type Cross-Friction,Strumming Intensity/Depth Moderate Body Position Supine Comments Instructed pt how to perform biceps tendon cross friction UT, LS Mobilization Type Rolling Intensity/Depth Moderate Body Position Supine Joint Mobilizations GH Joint GHJ Direction posterior and inferior Body Position Hooklying Manual Traction Cervical Body Position Hooklying Reps/Duration 4 min Comments moderate pressure with sidebend and rotation to left Self-Care/Home Management Treatment Activities Self-Care/Home Management Activities Cross friction to biceps tendon, door way and towel roll pec stretch PT-OP-R Modalities Start: 08/09/19 15:17 Freq: Status: Active Protocol: Document 09/18/19 17:23 [facility] (Rec: 09/18/19 17:46 [facility] [id number]) Hot Pack/Cold Pack Treatment Cold Pack Location R shoulder Patient Position Hooklying Treatment Duration (minutes) 10 PT-OP-T Assessment and Plan Start: 08/09/19 15:17 Freq: Status: Active Protocol: Document 09/24/19 15:15 MIGUELINA (Rec: 09/24/19 16:50 LJ [email or web address]) Physical Therapy Assessment Goals ADLs Short Term Goal (STG) Pt will be able to do make up and fix hair with RUE without inc pain greater than 1 point on VAS scale STG Duration 09/24/19 activities Short Term Goal (STG) Pt will return to hiking and walking 1 mile without inc in pain. STG Duration 09/20/19 Metal Extrusion Supervisor Goal (LTG) Pt will be able to return to working in the yard without issues with shoulder or groin or sense of LOB. LTG Duration 10/09/19 strength Short Term Goal (STG) Pt will be indep with HEP STG Duration 09/09/19 Metal Extrusion Supervisor Goal (LTG) Pt will score 5/5 UE and LE strength in order to allow her to return to her typical daily activities and will be able to paint without difficulty. LTG Duration 10/09/19 fall risk Residential Goal (LTG) Pt will improve FGA to score of 23 or greater to show less risk for falls. LTG Duration 10/09/19 Assessment Summary Assessment Pt stated she felt some relief post manual therapy and GH joint mobs. Pt reported cervical trraction with rotation and sidebending offered pain relief and better movement in shoulder with improved tissue extensibiity. Physical Therapy Plan Frequency and Duration Frequency of Treatment 2x/Week Duration of Treatment 2 months Plan of Care Start Date 08/09/19 Plan of Care End Date 10/09/19 Therapeutic Interventions Therapeutic Interventions Aquatic Therapy,Balance Training,Gait Training,Home Exercise Program,Joint Mobilizations,Manual Therapy, Neuromuscular Re-education, Patient/Caregiver Education, Self-Care/Home Management,Soft Tissue Mobilization,Taping, Therapeutic Activities, Therapeutic Exercises Modalities Cold Pack/Ice Massage,Electric Stimulation,Hot Packs, Infrared Therapy,Iontophoresis ,Ultrasound Next Visit Focus/Plan Next Note Type Treatment Note Next Visit Plan Continue STM and joint mobs with pp release of infraspinatus and UTs right side. Progress scapular stabilization to allow improvement in painfree IR and HAbd.
--- NOTE | 2019-09-26 15:55 | PT.OTN ---
Current Diagnoses Complete rotator cuff tear or rupture of right shoulder, not specified as traumatic (09/26/19) Difficulty in walking, not elsewhere classified (09/26/19) Weakness (09/26/19) Other specified fracture of right pubis, initial encounter for closed fracture (09/26/19) Contusion of right shoulder, initial encounter (09/26/19) Physical Therapy Treatment Note PT-OP-A Visit Information Start: 08/09/19 15:17 Freq: Status: Active Protocol: Document 09/26/19 14:30 LJ (Rec: 09/26/19 15:55 LJ [email or web address]) Out-Patient Physical Therapy Visit Information Visit Information Visit Type Treatment Note Visit Start Time 14:30 Visit Stop Time 15:15 Total Visit Minutes 45 Visit Number 11 Number of SUPERVISOR TYPESETTING Visits 3 PT-OP-B Current Condition Start: 08/09/19 15:17 Freq: Status: Active Protocol: Document 08/09/19 15:18 [facility] (Rec: 08/09/19 16:03 [facility] [id number]) Current Condition History of Current Condition Onset Date 07/10 Current Complaints R shoulder (RCT)& elbow pain History of Current Condition Pt reports she fractured her pelvis on 07/10 when she was taking a late night walk with her dgt and caught her foot on a curb and fractured her pelvis, and hit shoulder & elbow. Her MRI showed a complete R RCT . She has improved with gait and her ability to use her RUE some now. Pt reports elbow is cracking still operator but no fractures. No history of falls except skiing etc. Prior to this injury pt was painting, 3-5 miles of hiking daily, SUP, and gardening. Pt reports difficulty getting out of the chair Prior Treatments and Tests MRI of shoulder, MD instructed her on pendulums & wall crawls Treatment Goals Patient/Caregiver Goals walk more and hike, paint, SUP , be able to fix hair, return to gardening, get out of chair easily PT-OP-C Subjective Start: 08/09/19 15:17 Freq: Status: Active Protocol: Document 09/26/19 14:30 LJ (Rec: 09/26/19 15:55 LJ [email or web address]) OP-PT Subjective Patient Comments Patient Comments Pt didn't have time to do exercisees today. She has been cooking all day. Feels her shoulder is getting better ROM but is concerned about the weakness in certain motions PT-OP-E Functional Tests Start: 08/09/19 15:17 Freq: Status: Active Protocol: Document 08/09/19 15:18 [facility] (Rec: 08/09/19 17:41 [facility] [id number]) Functional Tests Functional Gait Assessment Score 20 Functional Gait Assessment Impairment 20 to <40% Impaired (Score 19- Rating 24) PT-OP-F Manual Assessment Start: 08/09/19 15:17 Freq: Status: Active Protocol: Document 08/09/19 15:18 [facility] (Rec: 08/09/19 16:03 [facility] [id number]) Manual Assessments Soft Tissue Assessment Soft Tissue Mobility Assessment tightness in parascapular mm R PT-OP-G Mobility & Gait Start: 08/09/19 15:17 Freq: Status: Active Protocol: Document 08/09/19 15:18 [facility] (Rec: 08/09/19 16:03 [facility] [id number]) OP Gait Assessment Comments Gait Comments Pt was using a walker until 2 days ago and then used poles since told her don't fall. Uses 2 poles in house most of the time. WIthout poles: slight deviation with ER of pelvis PT-OP-K Range of Motion Start: 08/09/19 15:17 Freq: Status: Active Protocol: Document 08/09/19 15:18 [facility] (Rec: 08/09/19 16:03 [facility] [id number]) Shoulder Goniometric Range of Motion Shoulder Left Active Flexion 156 Extension 70 Abduction 180 Internal Rotation Behind Back (text) T4 Right Active Flexion 64 Extension 62 Abduction 132 External Rotation at 0 degrees Abduction 35 Internal Rotation Behind Back (text) T10 PT-OP-M Strength Start: 08/09/19 15:17 Freq: Status: Active Protocol: Document 08/09/19 15:18 [facility] (Rec: 08/09/19 16:03 [facility] [id number]) Shoulder Strength Shoulder Manual Muscle Testing Right Flexion 2 Poor Extension 4- Good- Abduction (C5) 3 Fair External Rotation 3 Fair Internal Rotation 4- Good- Hip Strength Hip Manual Muscle Testing Left Flexion (L2) 5 Normal Extension (S1) 3+ Fair+ Abduction 4- Good- Adduction 5 Normal External Rotation 4+ Good+ Internal Rotation 4- Good- Right Flexion (L2) 3+ Fair+ Extension (S1) 3+ Fair+ Abduction 3+ Fair+ Adduction 4 Good External Rotation 3+ Fair+ Internal Rotation 3+ Fair+ Knee Strength Knee Manual Muscle Testing Left Flexion (S2) 5 Normal Extension (L3) 5 Normal Right Flexion (S2) 4+ Good+ Extension (L3) 5 Normal Ankle/Foot Strength Ankle and Foot Manual Muscle Testing Left Dorsiflexion (L4) 4+ Good+ Plantarflexion (S1) 5 Normal Right Dorsiflexion (L4) 4+ Good+ Plantarflexion (S1) 5 Normal PT-OP-Q Treatments Start: 08/09/19 15:17 Freq: Status: Active Protocol: Document 09/26/19 14:30 LJ (Rec: 09/26/19 15:55 LJ [email or web address]) Cardio Equipment Upper Body Ergometer (UBE) Duration (Minutes) 5 RPM 90 Height 4 Other fwd/back Gym Equipment Therapeutic Ball I, T, Y Ball Size/Color green Body Position Prone Reps/Duration 8 each prone over ball stretch Ball Size/Color green Body Position Prone Reps/Duration 4 min Comments moving upper to lower spine with rocking Therapeutic Exercises Prone Exercises 90/90 ER Side bilateral Reps/Minutes 10x Comments during trigger point release; assisted Sidelying Exercises ER Sidelying Exercise Name shoulder Side right Reps/Minutes 15 abd Sidelying Exercise Name shoulder Side right Reps/Minutes 15 Standing Exercises shoulder flex Standing Exercise Name Shoulder abduction, scaption, flexion Side bilateral Reps/Minutes 1x12 Manual Therapy Treatment Soft Tissue Mobilization teres Body Location teres major & minor & subscapularis Mobilization Type Strumming,Sustained Pressure, Trigger Point Release Intensity/Depth Moderate Comments ER, Abd during sustained pressure; inferior GH joint distraction during motion pec & biceps Mobilization Type Cross-Friction,Sustained Pressure,Trigger Point Release Intensity/Depth Moderate Body Position Supine UT, LS Mobilization Type Rolling Intensity/Depth Moderate Body Position Prone infraspinatus Mobilization Type Sustained Pressure,Trigger Point Release Intensity/Depth Deep Body Position Sidelying Comments assisted ER duing sustained pressure Joint Mobilizations scapular mobilization Joint right scapula Direction posterior, retraction Grade III Body Position Sidelying Reps/Duration 15 GH Joint GHJ Direction posterior and inferior Body Position Hooklying PT-OP-R Modalities Start: 08/09/19 15:17 Freq: Status: Active Protocol: Document 09/18/19 17:23 LR (Rec: 09/18/19 17:46 [facility] [id number]) Hot Pack/Cold Pack Treatment Cold Pack Location R shoulder Patient Position Hooklying Treatment Duration (minutes) 10 PT-OP-T Assessment and Plan Start: 08/09/19 15:17 Freq: Status: Active Protocol: Document 09/26/19 14:30 LJ (Rec: 09/26/19 15:55 LJ [email or web address]) Physical Therapy Assessment Goals ADLs Short Term Goal (STG) Pt will be able to do make up and fix hair with RUE without inc pain greater than 1 point on VAS scale STG Duration 09/24/19 activities Short Term Goal (STG) Pt will return to hiking and walking 1 mile without inc in pain. STG Duration 09/20/19 [facility] Goal (LTG) Pt will be able to return to working in the yard without issues with shoulder or groin or sense of LOB. LTG Duration 10/09/19 strength Short Term Goal (STG) Pt will be indep with HEP STG Duration 09/09/19 [facility] Goal (LTG) Pt will score 5/5 UE and LE strength in order to allow her to return to her typical daily activities and will be able to paint without difficulty. LTG Duration 10/09/19 fall risk [facility] Goal (LTG) Pt will improve FGA to score of 23 or greater to show less risk for falls. LTG Duration 10/09/19 Assessment Summary Assessment Pt had difficulty with ER during infraspinatus trigger point release. Trigger point release was effective in relieving infraspinatus pain but pt still had difficulty with ER Physical Therapy Plan Frequency and Duration Frequency of Treatment 2x/Week Duration of Treatment 2 months Plan of Care Start Date 08/09/19 Plan of Care End Date 10/09/19 Therapeutic Interventions Therapeutic Interventions Aquatic Therapy,Balance Training,Gait Training,Home Exercise Program,Joint Mobilizations,Manual Therapy, Neuromuscular Re-education, Patient/Caregiver Education, Self-Care/Home Management,Soft Tissue Mobilization,Taping, Therapeutic Activities, Therapeutic Exercises Modalities Cold Pack/Ice Massage,Electric Stimulation,Hot Packs, Infrared Therapy,Iontophoresis ,Ultrasound Next Visit Focus/Plan Next Note Type Treatment Note Next Visit Plan Continue STM and joint mobs with pp release of infraspinatus and UTs right side. Progress scapular stabilization to allow improvement in painfree IR and HAbd.
--- NOTE | 2019-10-01 17:55 | PT.OTN ---
Current Diagnoses Complete rotator cuff tear or rupture of right shoulder, not specified as traumatic (10/01/19) Difficulty in walking, not elsewhere classified (10/01/19) Weakness (10/01/19) Other specified fracture of right pubis, initial encounter for closed fracture (10/01/19) Contusion of right shoulder, initial encounter (10/01/19) Physical Therapy Treatment Note PT-OP-A Visit Information Start: 08/09/19 15:17 Freq: Status: Active Protocol: Document 10/01/19 10:30 MT (Rec: 10/01/19 12:59 MT [email or web address]) Out-Patient Physical Therapy Visit Information Visit Information Visit Type Progress Note Visit Start Time 10:30 Visit Stop Time 11:14 Total Visit Minutes 44 Visit Number 12 Number of LABORATORY EQUIPMENT CLEANER Visits 0 PT-OP-B Current Condition Start: 08/09/19 15:17 Freq: Status: Active Protocol: Document 08/09/19 15:18 [facility] (Rec: 08/09/19 16:03 [facility] [id number]) Current Condition History of Current Condition Onset Date 07/10 Current Complaints R shoulder (RCT)& elbow pain History of Current Condition Pt reports she fractured her pelvis on 07/10 when she was taking a late night walk with her dgt and caught her foot on a curb and fractured her pelvis, and hit shoulder & elbow. Her MRI showed a complete R RCT . She has improved with gait and her ability to use her RUE some now. Pt reports elbow is mat machine tender but no fractures. No history of falls except skiing etc. Prior to this injury pt was painting, 3-5 miles of hiking daily, SUP, and gardening. Pt reports difficulty getting out of the chair Prior Treatments and Tests MRI of shoulder, MD instructed her on pendulums & wall crawls Treatment Goals Patient/Caregiver Goals walk more and hike, paint, SUP , be able to fix hair, return to gardening, get out of chair easily PT-OP-C Subjective Start: 08/09/19 15:17 Freq: Status: Active Protocol: Document 10/01/19 10:30 MT (Rec: 10/01/19 12:59 MT [email or web address]) OP-PT Subjective Patient Comments Patient Comments Pt remarks that she attempted to paint, but is unable to hold and maneuver her R arm into the necessary positions. Pt reports that she still gets pain with holding a heavy object or with pouring coffee . Pt reported that she has been starting to have an increase in vertigo symptoms that she used to have before especially when waking up in the morning. Pt leaves tomorrow for [place] for a month. PT-OP-E Functional Tests Start: 08/09/19 15:17 Freq: Status: Active Protocol: Document 10/01/19 10:30 MT (Rec: 10/01/19 13:01 MT [email or web address]) Functional Tests Functional Gait Assessment Score 25 Functional Gait Assessment Impairment 1 to <20% Impaired (Score 25- Rating 29) PT-OP-F Manual Assessment Start: 08/09/19 15:17 Freq: Status: Active Protocol: Document 08/09/19 15:18 [facility] (Rec: 08/09/19 16:03 [facility] [id number]) Manual Assessments Soft Tissue Assessment Soft Tissue Mobility Assessment tightness in parascapular mm R PT-OP-G Mobility & Gait Start: 08/09/19 15:17 Freq: Status: Active Protocol: Document 08/09/19 15:18 [facility] (Rec: 08/09/19 16:03 [facility] [id number]) OP Gait Assessment Comments Gait Comments Pt was using a walker until 2 days ago and then used poles since MD told her don't fall. Uses 2 poles in house most of the time. WIthout poles: slight deviation with ER of pelvis PT-OP-K Range of Motion Start: 08/09/19 15:17 Freq: Status: Active Protocol: Document 08/09/19 15:18 [facility] (Rec: 08/09/19 16:03 [facility] [id number]) Shoulder Goniometric Range of Motion Shoulder Left Active Flexion 156 Extension 70 Abduction 180 Internal Rotation Behind Back (text) T4 Right Active Flexion 64 Extension 62 Abduction 132 External Rotation at 0 degrees Abduction 35 Internal Rotation Behind Back (text) T10 PT-OP-M Strength Start: 08/09/19 15:17 Freq: Status: Active Protocol: Document 10/01/19 10:30 LR (Rec: 10/01/19 10:59 [facility] [id number]) Shoulder Strength Shoulder Manual Muscle Testing Right Flexion 4 Good Extension 4+ Good+ Abduction (C5) 4 Good External Rotation 3 Fair Internal Rotation 4+ Good+ Horizontal Abduction 5 Normal Horizontal Adduction 4+ Good+ Reason Not Measured Pain Hip Strength Hip Manual Muscle Testing Left Flexion (L2) 3+ Fair+ Extension (S1) 4- Good- Abduction 4 Good Adduction 4- Good- External Rotation 4 Good Internal Rotation 4 Good Comments pt reports little in L hip that she noted during hip flex Right Flexion (L2) 4- Good- Extension (S1) 4- Good- Abduction 4+ Good+ Adduction 4- Good- External Rotation 4 Good Internal Rotation 4 Good Comments All MMT tested by PT student PT-OP-Q Treatments Start: 08/09/19 15:17 Freq: Status: Active Protocol: Document 10/01/19 10:30 MT (Rec: 10/01/19 12:59 MT [email or web address]) Cardio Equipment Upper Body Ergometer (UBE) Duration (Minutes) 5 RPM 90 Height 4 Other fwd/back Therapeutic Exercises Standing Exercises Shoulder strength Standing Exercise Name resisted rows, pull downs, ER, IR Side bilateral Resistance L1/L2 Reps/Minutes 20 each Comments Er was difficult for pt so pt told to continue w/ sidelying ER Self-Care/Home Management Treatment Education Patient Education Safety Caregiver Education Pt educated about her vertigo and that she should dicuss these symptoms with her doctor to try to get a referral to a vastibular PT in order to address her poisiotnal vertigo . PT-OP-R Modalities Start: 08/09/19 15:17 Freq: Status: Active Protocol: Document 09/18/19 17:23 [facility] (Rec: 09/18/19 17:46 [facility] [id number]) Hot Pack/Cold Pack Treatment Cold Pack Location R shoulder Patient Position Hooklying Treatment Duration (minutes) 10 PT-OP-T Assessment and Plan Start: 08/09/19 15:17 Freq: Status: Active Protocol: Document 10/01/19 10:30 MT (Rec: 10/01/19 12:59 MT [email or web address]) Physical Therapy Assessment Goals ADLs Short Term Goal (STG) Pt will be able to do make up and fix hair with RUE without inc pain greater than 1 point on VAS scale 10/01/19 - pt is able to perform these activities, but still continues to get pain with certain activties described as an aching feeling STG Duration 11/01/19 Senior Living Goal (LTG) Pt will be able to return to painting without an increase in VAS scale greater than 1 point LTG Duration 12/02/19 activities Short Term Goal (STG) Pt will return to hiking and walking 1 mile without inc in pain. STG Duration achieved Senior Living Goal (LTG) Pt will be able to return to working in the yard without issues with shoulder or groin or sense of LOB. LTG Duration achieved strength Short Term Goal (STG) Pt will be indep with HEP STG Duration achieved Frozen Pie Maker Goal (LTG) Pt will score 5/5 UE and LE strength in order to allow her to return to her typical daily activities and will be able to paint without difficulty. 10/01/19- pt still continues to have weakness in R UE and B LE LTG Duration 12/02/19 fall risk Frozen Pie Maker Goal (LTG) Pt will improve FGA to score of 23 or greater to show less risk for falls. 10/01/19 - pt reached 25/30 on FGA LTG Duration achieved Progress Towards Goals Progress Towards Goals Progressing Toward Goals Progress Comments Pt is progressing towards her goals. She has met her goals of being able to walk/hike 1 mile without increase in pain and has returned to being able to garden. She has not yet been able to return to painting and has not increased her strength to a 5/5 in R UE or B LE. Assessment Summary Assessment Assessed pt's progress towards her goals, since this will be the pt's last visit before end due to her trip to [place]. Pt is continuing to make progress towards goals , but has not reached her goal of 5/5 strength in R UE and B LE. She also still continues to have pain with certain daily activties and has not been able to return to painting yet. Pt will to benefit from skilled PT to continue to address these deficits. Pt was educated on discussing with her doctor about getting a referral for PT to address her positional vertigo. Pt was given HEP and educated how to progress exercises throughout her trip in order to continue to build strength and activtiy tolerance. Physical Therapy Plan Frequency and Duration Frequency of Treatment 2x/Week Duration of Treatment 2 months Plan of Care Start Date 10/01/19 Plan of Care End Date 12/02/19 Therapeutic Interventions Therapeutic Interventions Aquatic Therapy,Balance Training,Gait Training,Home Exercise Program,Joint Mobilizations,Manual Therapy, Neuromuscular Re-education, Patient/Caregiver Education, Self-Care/Home Management,Soft Tissue Mobilization,Taping, Therapeutic Activities, Therapeutic Exercises Modalities Cold Pack/Ice Massage,Electric Stimulation,Hot Packs, Infrared Therapy,Iontophoresis ,Ultrasound Next Visit Focus/Plan Next Note Type Treatment Note Next Visit Plan Assess pt's progress since last tx, Continue STM and joint mobs with pp release of infraspinatus and UTs right side. Progress scapular stabilization to allow improvement in painfree IR and HAbd.
--- NOTE | 2019-11-06 12:17 | PT.OTN ---
Current Diagnoses Complete rotator cuff tear or rupture of right shoulder, not specified as traumatic (11/06/19) Difficulty in walking, not elsewhere classified (11/06/19) Weakness (11/06/19) Other specified fracture of right pubis, initial encounter for closed fracture (11/06/19) Contusion of right shoulder, initial encounter (11/06/19) Physical Therapy Treatment Note PT-OP-A Visit Information Start: 08/09/19 15:17 Freq: Status: Active Protocol: Document 11/06/19 11:21 [facility] (Rec: 11/06/19 12:17 [facility] [id number]) Out-Patient Physical Therapy Visit Information Visit Information Visit Type Treatment Note Visit Start Time 11:17 Visit Stop Time 12:00 Total Visit Minutes 43 Visit Number 13 Number of NITRATING ACID MIXER Visits 0 PT-OP-B Current Condition Start: 08/09/19 15:17 Freq: Status: Active Protocol: Document 08/09/19 15:18 [facility] (Rec: 08/09/19 16:03 [facility] [id number]) Current Condition History of Current Condition Onset Date 07/10 Current Complaints R shoulder (RCT)& elbow pain History of Current Condition Pt reports she fractured her pelvis on 07/10 when she was taking a late night walk with her dgt and caught her foot on a curb and fractured her pelvis, and hit shoulder & elbow. Her MRI showed a complete R RCT . She has improved with gait and her ability to use her RUE some now. 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 No history of falls except skiing etc. Prior to this injury pt was painting, 3-5 miles of hiking daily, SUP, and gardening. Pt reports difficulty getting out of the chair Prior Treatments and Tests MRI of shoulder, MD instructed her on pendulums & wall crawls Treatment Goals Patient/Caregiver Goals walk more and hike, paint, SUP , be able to fix hair, return to gardening, get out of chair easily PT-OP-C Subjective Start: 08/09/19 15:17 Freq: Status: Active Protocol: Document 11/06/19 11:21 [facility] (Rec: 11/06/19 12:17 [facility] [id number]) OP-PT Subjective Patient Comments Patient Comments pt reports she did not have a lot of time to do exercises. Shoulder is sore today. She tried exercises since returning home but has been sore doing them. PT-OP-E Functional Tests Start: 08/09/19 15:17 Freq: Status: Active Protocol: Document 10/01/19 10:30 MT (Rec: 10/01/19 13:01 MT [email or web address]) Functional Tests Functional Gait Assessment Score 25 Functional Gait Assessment Impairment 1 to <20% Impaired (Score 25- Rating 29) PT-OP-F Manual Assessment Start: 08/09/19 15:17 Freq: Status: Active Protocol: Document 08/09/19 15:18 [facility] (Rec: 08/09/19 16:03 [facility] [id number]) Manual Assessments Soft Tissue Assessment Soft Tissue Mobility Assessment tightness in parascapular mm R PT-OP-G Mobility & Gait Start: 08/09/19 15:17 Freq: Status: Active Protocol: Document 08/09/19 15:18 [facility] (Rec: 08/09/19 16:03 [facility] [id number]) OP Gait Assessment Comments Gait Comments Pt was using a walker until 2 days ago and then used poles since MD told her don't fall. Uses 2 poles in house most of the time. WIthout poles: slight deviation with ER of pelvis PT-OP-K Range of Motion Start: 08/09/19 15:17 Freq: Status: Active Protocol: Document 08/09/19 15:18 [facility] (Rec: 08/09/19 16:03 [facility] [id number]) Shoulder Goniometric Range of Motion Shoulder Left Active Flexion 156 Extension 70 Abduction 180 Internal Rotation Behind Back (text) T4 Right Active Flexion 64 Extension 62 Abduction 132 External Rotation at 0 degrees Abduction 35 Internal Rotation Behind Back (text) T10 PT-OP-M Strength Start: 08/09/19 15:17 Freq: Status: Active Protocol: Document 10/01/19 10:30 [facility] (Rec: 10/01/19 10:59 [facility] [id number]) Shoulder Strength Shoulder Manual Muscle Testing Right Flexion 4 Good Extension 4+ Good+ Abduction (C5) 4 Good External Rotation 3 Fair Internal Rotation 4+ Good+ Horizontal Abduction 5 Normal Horizontal Adduction 4+ Good+ Reason Not Measured Pain Hip Strength Hip Manual Muscle Testing Left Flexion (L2) 3+ Fair+ Extension (S1) 4- Good- Abduction 4 Good Adduction 4- Good- External Rotation 4 Good Internal Rotation 4 Good Comments pt reports little in L hip that she noted during hip flex Right Flexion (L2) 4- Good- Extension (S1) 4- Good- Abduction 4+ Good+ Adduction 4- Good- External Rotation 4 Good Internal Rotation 4 Good Comments All MMT tested by PT student PT-OP-Q Treatments Start: 08/09/19 15:17 Freq: Status: Active Protocol: Document 11/06/19 11:21 [facility] (Rec: 11/06/19 12:17 [facility] [id number]) Cardio Equipment Upper Body Ergometer (UBE) Duration (Minutes) 5 RPM 60 Seat Position 12 Height 4 Other fwd/back Therapeutic Exercises Supine Exercises flex Supine Exercise Name flex & abd in mirror Side right Reps/Minutes 20 Comments focus on scap position Sidelying Exercises ER Sidelying Exercise Name shoulder Side right Reps/Minutes 8 Comments demo the difference btwn having something at elbow and not Manual Therapy Treatment Soft Tissue Mobilization teres Body Location teres major & minor & subscapularis Mobilization Type Strumming,Sustained Pressure, Trigger Point Release Intensity/Depth Moderate UT, LS Body Location UT & LS & scalenes R Mobilization Type Rolling Intensity/Depth Moderate Body Position Prone Joint Mobilizations 1st rib Joint R 1st & 3rd rib Direction caudal FM scapular mobilization Joint right scapula Direction posterior, retraction Grade III Body Position Sidelying GH Joint GHJ Direction posterior and inferior & distraction Body Position Hooklying PT-OP-R Modalities Start: 08/09/19 15:17 Freq: Status: Active Protocol: Document 09/18/19 17:23 [facility] (Rec: 09/18/19 17:46 [facility] [id number]) Hot Pack/Cold Pack Treatment Cold Pack Location R shoulder Patient Position Hooklying Treatment Duration (minutes) 10 PT-OP-T Assessment and Plan Start: 08/09/19 15:17 Freq: Status: Active Protocol: Document 11/06/19 11:21 [facility] (Rec: 11/06/19 12:17 [facility] [id number]) Physical Therapy Assessment Goals ADLs Short Term Goal (STG) Pt will be able to do make up and fix hair with RUE without inc pain greater than 1 point on VAS scale 10/01/19 - pt is able to perform these activities, but still continues to get pain with certain activties described as an aching feeling STG Duration 11/01/19 Weapons Officer Goal (LTG) Pt will be able to return to painting without an increase in VAS scale greater than 1 point LTG Duration 12/02/19 activities Short Term Goal (STG) Pt will return to hiking and walking 1 mile without inc in pain. STG Duration achieved Alf Goal (LTG) Pt will be able to return to working in the yard without issues with shoulder or groin or sense of LOB. LTG Duration achieved strength Short Term Goal (STG) Pt will be indep with HEP STG Duration achieved Alf Goal (LTG) Pt will score 5/5 UE and LE strength in order to allow her to return to her typical daily activities and will be able to paint without difficulty. 10/01/19- pt still continues to have weakness in R UE and B LE LTG Duration 12/02/19 fall risk Alf Goal (LTG) Pt will improve FGA to score of 23 or greater to show less risk for falls. 10/01/19 - pt reached 25/30 on FGA LTG Duration achieved Assessment Summary Assessment Pt had signficaitnly elevated R hsoulder upon arrival today. Improved with soft tissue and joint mobility work. She required reminders for scapular positioning during all exercises & elbow support during ER exercise. Physical Therapy Plan Frequency and Duration Frequency of Treatment 2x/Week Duration of Treatment 2 months Plan of Care Start Date 10/01/19 Plan of Care End Date 12/02/19 Next Visit Focus/Plan Next Note Type Treatment Note Next Visit Plan review exercises & progress as tolerated, work on soft tissue and joint mobility for improved mechanics
--- NOTE | 2019-11-13 11:54 | PT.OTN ---
Current Diagnoses Complete rotator cuff tear or rupture of right shoulder, not specified as traumatic (11/13/19) Difficulty in walking, not elsewhere classified (11/13/19) Weakness (11/13/19) Other specified fracture of right pubis, initial encounter for closed fracture (11/13/19) Contusion of right shoulder, initial encounter (11/13/19) Physical Therapy Treatment Note PT-OP-A Visit Information Start: 08/09/19 15:17 Freq: Status: Active Protocol: Document 11/13/19 09:49 [facility] (Rec: 11/13/19 11:54 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 (Rec: 08/09/19 16:03 [facility] [id number]) Current Condition History of Current Condition Onset Date 07/10 Current Complaints R shoulder (RCT)& elbow pain History of Current Condition Pt reports she fractured her pelvis on 07/10 when she was taking a late night walk with her dgt and caught her foot on a curb and fractured her pelvis, and hit shoulder & elbow. Her MRI showed a complete R RCT . She has improved with gait and her ability to use her RUE some now. Pt reports elbow is disk and tape machine tender but no fractures. No history of falls except skiing etc. Prior to this injury pt was painting, 3-5 miles of hiking daily, SUP, and gardening. Pt reports difficulty getting out of the chair Prior Treatments and Tests MRI of shoulder, MD instructed her on pendulums & wall crawls Treatment Goals Patient/Caregiver Goals walk more and hike, paint, SUP , be able to fix hair, return to gardening, get out of chair easily PT-OP-C Subjective Start: 08/09/19 15:17 Freq: Status: Active Protocol: Document 11/13/19 09:49 [facility] (Rec: 11/13/19 11:54 [facility] [id number]) OP-PT Subjective Patient Comments Patient Comments Pt was able to paint but had dec dexterity. Pt had to rest arm occasionally PT-OP-E Functional Tests Start: 08/09/19 15:17 Freq: Status: Active Protocol: Document 10/01/19 10:30 [facility] (Rec: 10/01/19 13:01 MT [id number]) Functional Tests Functional Gait Assessment Score 25 Functional Gait Assessment Impairment 1 to <20% Impaired (Score 25- Rating 29) PT-OP-F Manual Assessment Start: 08/09/19 15:17 Freq: Status: Active Protocol: Document 08/09/19 15:18 [facility] (Rec: 08/09/19 16:03 [facility] [id number]) Manual Assessments Soft Tissue Assessment Soft Tissue Mobility Assessment tightness in parascapular mm R PT-OP-G Mobility & Gait Start: 08/09/19 15:17 Freq: Status: Active Protocol: Document 08/09/19 15:18 [facility] (Rec: 08/09/19 16:03 [facility] [id number]) OP Gait Assessment Comments Gait Comments Pt was using a walker until 2 days ago and then used poles since MD told her don't fall. Uses 2 poles in house most of the time. WIthout poles: slight deviation with ER of pelvis PT-OP-K Range of Motion Start: 08/09/19 15:17 Freq: Status: Active Protocol: Document 08/09/19 15:18 [facility] (Rec: 08/09/19 16:03 [facility] [id number]) Shoulder Goniometric Range of Motion Shoulder Left Active Flexion 156 Extension 70 Abduction 180 Internal Rotation Behind Back (text) T4 Right Active Flexion 64 Extension 62 Abduction 132 External Rotation at 0 degrees Abduction 35 Internal Rotation Behind Back (text) T10 PT-OP-M Strength Start: 08/09/19 15:17 Freq: Status: Active Protocol: Document 10/01/19 10:30 [facility] (Rec: 10/01/19 10:59 [facility] [id number]) Shoulder Strength Shoulder Manual Muscle Testing Right Flexion 4 Good Extension 4+ Good+ Abduction (C5) 4 Good External Rotation 3 Fair Internal Rotation 4+ Good+ Horizontal Abduction 5 Normal Horizontal Adduction 4+ Good+ Reason Not Measured Pain Hip Strength Hip Manual Muscle Testing Left Flexion (L2) 3+ Fair+ Extension (S1) 4- Good- Abduction 4 Good Adduction 4- Good- External Rotation 4 Good Internal Rotation 4 Good Comments pt reports little in L hip that she noted during hip flex Right Flexion (L2) 4- Good- Extension (S1) 4- Good- Abduction 4+ Good+ Adduction 4- Good- External Rotation 4 Good Internal Rotation 4 Good Comments All MMT tested by PT student PT-OP-Q Treatments Start: 08/09/19 15:17 Freq: Status: Active Protocol: Document 11/13/19 09:49 [facility] (Rec: 11/13/19 11:54 [facility] [id number]) Therapeutic Exercises Supine Exercises serratus punch Side bilateral Equipment Used 2# Reps/Minutes 20 Prone Exercises 90/90 ER Side bilateral Reps/Minutes 15 ext Side bilateral Equipment Used 2# Reps/Minutes 15 scaption Side bilateral Equipment Used 1# Comments 15 HAbd Side bilateral Equipment Used 1# Reps/Minutes 15 Sidelying Exercises ER Sidelying Exercise Name shoulder Side right Reps/Minutes 8 Comments demo the difference btwn having something at elbow and not Standing Exercises Shoulder strength Standing Exercise Name resisted rows, pull downs, IR Side bilateral Resistance L2 Reps/Minutes 20 each Manual Therapy Treatment Soft Tissue Mobilization pec & biceps Mobilization Type Cross-Friction,Sustained Pressure,Trigger Point Release Intensity/Depth Moderate Body Position Supine Joint Mobilizations AC Joint ventral FM R GH Joint GHJ Direction Distraction & lat gapping FM Body Position Hooklying PT-OP-R Modalities Start: 08/09/19 15:17 Freq: Status: Active Protocol: Document 09/18/19 17:23 [facility] (Rec: 09/18/19 17:46 [facility] [id number]) Hot Pack/Cold Pack Treatment Cold Pack Location R shoulder Patient Position Hooklying Treatment Duration (minutes) 10 PT-OP-T Assessment and Plan Start: 08/09/19 15:17 Freq: Status: Active Protocol: Document 11/13/19 09:49 [facility] (Rec: 11/13/19 11:54 [facility] [id number]) Physical Therapy Assessment Goals ADLs Short Term Goal (STG) Pt will be able to do make up and fix hair with RUE without inc pain greater than 1 point on VAS scale 10/01/19 - pt is able to perform these activities, but still continues to get pain with certain activties described as an aching feeling STG Duration 11/01/19 Generating Station Mechanic Goal (LTG) Pt will be able to return to painting without an increase in VAS scale greater than 1 point LTG Duration 12/02/19 activities Short Term Goal (STG) Pt will return to hiking and walking 1 mile without inc in pain. STG Duration achieved Generating Station Mechanic Goal (LTG) Pt will be able to return to working in the yard without issues with shoulder or groin or sense of LOB. LTG Duration achieved strength Short Term Goal (STG) Pt will be indep with HEP STG Duration achieved Generating Station Mechanic Goal (LTG) Pt will score 5/5 UE and LE strength in order to allow her to return to her typical daily activities and will be able to paint without difficulty. 10/01/19- pt still continues to have weakness in R UE and B LE LTG Duration 12/02/19 fall risk Generating Station Mechanic Goal (LTG) Pt will improve FGA to score of 23 or greater to show less risk for falls. 10/01/19 - pt reached 25/30 on FGA LTG Duration achieved Assessment Summary Assessment Pt required cueing for form and slowing down with all exercises today. Improved form with cueing. She had signficiant tightness of pec that improved with STM. Physical Therapy Plan Frequency and Duration Frequency of Treatment 2x/Week Duration of Treatment 2 months Plan of Care Start Date 10/01/19 Plan of Care End Date 12/02/19 Next Visit Focus/Plan Next Note Type Treatment Note Next Visit Plan review exercises & progress as tolerated, work on soft tissue and joint mobility for improved mechanics
--- NOTE | 2019-11-26 15:13 | PT.OTN ---
Current Diagnoses Complete rotator cuff tear or rupture of right shoulder, not specified as traumatic (11/26/19) Difficulty in walking, not elsewhere classified (11/26/19) Weakness (11/26/19) Other specified fracture of right pubis, initial encounter for closed fracture (11/26/19) Contusion of right shoulder, initial encounter (11/26/19) Physical Therapy Treatment Note PT-OP-A Visit Information Start: 08/09/19 15:17 Freq: Status: Active Protocol: Document 11/26/19 14:35 [facility] (Rec: 11/26/19 15:11 [facility] [id number]) Out-Patient Physical Therapy Visit Information Visit Information Visit Type Treatment Note Visit Start Time 14:31 Visit Stop Time 15:11 Total Visit Minutes 40 Visit Number 15 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 Her MRI showed a complete R RCT . She has improved with gait and her ability to use her RUE some now. Pt reports elbow is chuck tender but no fractures. No history of falls except skiing etc. Prior to this injury pt was painting, 3-5 miles of hiking daily, SUP, and gardening. Pt reports difficulty getting out of the chair Prior Treatments and Tests MRI of shoulder, MD instructed her on pendulums & wall crawls Treatment Goals Patient/Caregiver Goals walk more and hike, paint, SUP , be able to fix hair, return to gardening, get out of chair easily PT-OP-C Subjective Start: 08/09/19 15:17 Freq: Status: Active Protocol: Document 11/26/19 14:35 [facility] (Rec: 11/26/19 15:11 [facility] [id number]) OP-PT Subjective Patient Comments Patient Comments Pt reports shoulde ris doing better. Pt will be gone Dec 03. Patient Reported Progress Improving PT-OP-E Functional Tests Start: 08/09/19 15:17 Freq: Status: Active Protocol: Document 10/01/19 10:30 [facility] (Rec: 10/01/19 13:01 MT [id number]) Functional Tests Functional Gait Assessment Score 25 Functional Gait Assessment Impairment 1 to <20% Impaired (Score 25- Rating 29) PT-OP-F Manual Assessment Start: 08/09/19 15:17 Freq: Status: Active Protocol: Document 08/09/19 15:18 [facility] (Rec: 08/09/19 16:03 [facility] [id number]) Manual Assessments Soft Tissue Assessment Soft Tissue Mobility Assessment tightness in parascapular mm R PT-OP-G Mobility & Gait Start: 08/09/19 15:17 Freq: Status: Active Protocol: Document 08/09/19 15:18 [facility] (Rec: 08/09/19 16:03 [facility] [id number]) OP Gait Assessment Comments Gait Comments Pt was using a walker until 2 days ago and then used poles since MD told her don't fall. Uses 2 poles in house most of the time. WIthout poles: slight deviation with ER of pelvis PT-OP-K Range of Motion Start: 08/09/19 15:17 Freq: Status: Active Protocol: Document 08/09/19 15:18 [facility] (Rec: 08/09/19 16:03 [facility] [id number]) Shoulder Goniometric Range of Motion Shoulder Left Active Flexion 156 Extension 70 Abduction 180 Internal Rotation Behind Back (text) T4 Right Active Flexion 64 Extension 62 Abduction 132 External Rotation at 0 degrees Abduction 35 Internal Rotation Behind Back (text) T10 PT-OP-M Strength Start: 08/09/19 15:17 Freq: Status: Active Protocol: Document 10/01/19 10:30 [facility] (Rec: 10/01/19 10:59 [facility] [id number]) Shoulder Strength Shoulder Manual Muscle Testing Right Flexion 4 Good Extension 4+ Good+ Abduction (C5) 4 Good External Rotation 3 Fair Internal Rotation 4+ Good+ Horizontal Abduction 5 Normal Horizontal Adduction 4+ Good+ Reason Not Measured Pain Hip Strength Hip Manual Muscle Testing Left Flexion (L2) 3+ Fair+ Extension (S1) 4- Good- Abduction 4 Good Adduction 4- Good- External Rotation 4 Good Internal Rotation 4 Good Comments pt reports little in L hip that she noted during hip flex Right Flexion (L2) 4- Good- Extension (S1) 4- Good- Abduction 4+ Good+ Adduction 4- Good- External Rotation 4 Good Internal Rotation 4 Good Comments All MMT tested by PT student PT-OP-Q Treatments Start: 08/09/19 15:17 Freq: Status: Active Protocol: Document 11/26/19 14:35 [facility] (Rec: 11/26/19 15:11 [facility] [id number]) Cardio Equipment Upper Body Ergometer (UBE) Duration (Minutes) 6 RPM 60 Seat Position 12 Height 5 Other fwd/back Therapeutic Exercises Supine Exercises serratus punch Side bilateral Equipment Used 2# Reps/Minutes 20 Prone Exercises 90/90 ER Side bilateral Reps/Minutes 15 ext Side bilateral Equipment Used 2# Reps/Minutes 15 scaption Side bilateral Equipment Used 2# Comments 15 HAbd Side bilateral Equipment Used 1#, 2# Reps/Minutes 10x2 Sidelying Exercises ER Sidelying Exercise Name shoulder Side right Reps/Minutes 15 Standing Exercises Shoulder strength Standing Exercise Name resisted rows, pull downs, IR Side bilateral Resistance L2 Reps/Minutes 20 each Manual Therapy Treatment Soft Tissue Mobilization pec & biceps Mobilization Type Cross-Friction,Sustained Pressure,Trigger Point Release Intensity/Depth Moderate Body Position Supine Joint Mobilizations GH Joint GHJ Direction distraction, inf & post glides Body Position Hooklying PT-OP-R Modalities Start: 08/09/19 15:17 Freq: Status: Active Protocol: Document 09/18/19 17:23 [facility] (Rec: 09/18/19 17:46 [facility] [id number]) Hot Pack/Cold Pack Treatment Cold Pack Location R shoulder Patient Position Hooklying Treatment Duration (minutes) 10 PT-OP-T Assessment and Plan Start: 08/09/19 15:17 Freq: Status: Active Protocol: Document 11/26/19 14:35 [facility] (Rec: 11/26/19 15:11 [facility] [id number]) Physical Therapy Assessment Goals ADLs Short Term Goal (STG) Pt will be able to do make up and fix hair with RUE without inc pain greater than 1 point on VAS scale 10/01/19 - pt is able to perform these activities, but still continues to get pain with certain activties described as an aching feeling STG Duration 11/01/19 Information Resources Director Goal (LTG) Pt will be able to return to painting without an increase in VAS scale greater than 1 point LTG Duration 12/02/19 activities Short Term Goal (STG) Pt will return to hiking and walking 1 mile without inc in pain. STG Duration achieved Fpc Goal (LTG) Pt will be able to return to working in the yard without issues with shoulder or groin or sense of LOB. LTG Duration achieved strength Short Term Goal (STG) Pt will be indep with HEP STG Duration achieved Fpc Goal (LTG) Pt will score 5/5 UE and LE strength in order to allow her to return to her typical daily activities and will be able to paint without difficulty. 10/01/19- pt still continues to have weakness in R UE and B LE LTG Duration 12/02/19 fall risk Fpc Goal (LTG) Pt will improve FGA to score of 23 or greater to show less risk for falls. 10/01/19 - pt reached 25/30 on FGA LTG Duration achieved Assessment Summary Assessment Pt required cueing to slow down with exercises but overall improved form demonstrated today. Physical Therapy Plan Frequency and Duration Frequency of Treatment 2x/Week Duration of Treatment 2 months Plan of Care Start Date 10/01/19 Plan of Care End Date 12/02/19 Next Visit Focus/Plan Next Note Type Progress Note Next Visit Plan review exercises & progress as tolerated, work on soft tissue and joint mobility for improved mechanics for reaching
--- NOTE | 2020-04-23 11:05 | PT.OPDS ---
Current Diagnoses Complete rotator cuff tear or rupture of right shoulder, not specified as traumatic (11/26/19) Difficulty in walking, not elsewhere classified (11/26/19) Weakness (11/26/19) Other specified fracture of right pubis, initial encounter for closed fracture (11/26/19) Contusion of right shoulder, initial encounter (11/26/19) Visit Care Team Role Provider Type Ree Mann DO Primary Care Provider Physician Specialty: [facility] Address: [address] [place] [address], [facility] [place], [address] Email: [email or web address] Heri Lynch MD Attending Provider Physician Specialty: Orthopedic Surgery Address: [address] [place] [address], [place], [address] Email: [email or web address] Visit Number Visit Number 15 Discharge Summary PT-OP-B Current Condition Start: 08/09/19 15:17 Freq: Status: Active Protocol: Document 08/09/19 15:18 LR (Rec: 08/09/19 16:03 [facility] [id number]) Current Condition History of Current Condition Onset Date 07/10 Current Complaints R shoulder (RCT)& elbow pain History of Current Condition Pt reports she fractured her pelvis on 07/10 when she was taking a late night walk with her dgt and caught her foot on a curb and fractured her pelvis, and hit shoulder & elbow. Her MRI showed a complete R RCT . She has improved with gait and her ability to use her RUE some now. 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 No history of falls except skiing etc. Prior to this injury pt was painting, 3-5 miles of hiking daily, SUP, and gardening. Pt reports difficulty getting out of the chair Prior Treatments and Tests MRI of shoulder, instructed her on pendulums & wall crawls Treatment Goals Patient/Caregiver Goals walk more and hike, paint, SUP , be able to fix hair, return to gardening, get out of chair easily PT-OP-C Subjective Start: 08/09/19 15:17 Freq: Status: Active Protocol: Document 11/26/19 14:35 LR (Rec: 11/26/19 15:11 [facility] [id number]) OP-PT Subjective Patient Comments Patient Comments Pt reports shoulde ris doing better. Pt will be gone Dec 03. Patient Reported Progress Improving PT-OP-E Functional Tests Start: 08/09/19 15:17 Freq: Status: Active Protocol: Document 10/01/19 10:30 MT (Rec: 10/01/19 13:01 MT [id number]) Functional Tests Functional Gait Assessment Score 25 Functional Gait Assessment Impairment 1 to <20% Impaired (Score 25- Rating 29) PT-OP-F Manual Assessment Start: 08/09/19 15:17 Freq: Status: Active Protocol: Document 08/09/19 15:18 [facility] (Rec: 08/09/19 16:03 [facility] [id number]) Manual Assessments Soft Tissue Assessment Soft Tissue Mobility Assessment tightness in parascapular mm R PT-OP-G Mobility & Gait Start: 08/09/19 15:17 Freq: Status: Active Protocol: Document 08/09/19 15:18 [facility] (Rec: 08/09/19 16:03 [facility] [id number]) OP Gait Assessment Comments Gait Comments Pt was using a walker until 2 days ago and then used poles since MD told her don't fall. Uses 2 poles in house most of the time. WIthout poles: slight deviation with ER of pelvis PT-OP-K Range of Motion Start: 08/09/19 15:17 Freq: Status: Active Protocol: Document 08/09/19 15:18 [facility] (Rec: 08/09/19 16:03 [facility] [id number]) Shoulder Goniometric Range of Motion Shoulder Left Active Flexion 156 Extension 70 Abduction 180 Internal Rotation Behind Back (text) T4 Right Active Flexion 64 Extension 62 Abduction 132 External Rotation at 0 degrees Abduction 35 Internal Rotation Behind Back (text) T10 PT-OP-M Strength Start: 08/09/19 15:17 Freq: Status: Active Protocol: Document 10/01/19 10:30 [facility] (Rec: 10/01/19 10:59 [facility] [id number]) Shoulder Strength Shoulder Manual Muscle Testing Right Flexion 4 Good Extension 4+ Good+ Abduction (C5) 4 Good External Rotation 3 Fair Internal Rotation 4+ Good+ Horizontal Abduction 5 Normal Horizontal Adduction 4+ Good+ Reason Not Measured Pain Hip Strength Hip Manual Muscle Testing Left Flexion (L2) 3+ Fair+ Extension (S1) 4- Good- Abduction 4 Good Adduction 4- Good- External Rotation 4 Good Internal Rotation 4 Good Comments pt reports little in L hip that she noted during hip flex Right Flexion (L2) 4- Good- Extension (S1) 4- Good- Abduction 4+ Good+ Adduction 4- Good- External Rotation 4 Good Internal Rotation 4 Good Comments All MMT tested by PT student PT-OP-T Assessment and Plan Start: 08/09/19 15:17 Freq: Status: Active Protocol: Document 04/23/20 11:05 [facility] (Rec: 04/23/20 11:05 [facility] [id number]) Physical Therapy Plan Discharge Physical Therapy Discharge Reasons No Longer Attending PT Discharge Comments Pt did not scheudle further visits when she returned from her trip as instructed if she required further PT for shoulder. Pt was doing well prior to the trip and had started doing her art again. She has not been seen for 5 months so d/c at this time.
== END 2020-04-24 07:39 ==
LOC: PHYS 14:30
PROVIDERS: PCP Family Medicine; Visit Provider Orthopaedic Surgery
DX: M75.121 Complete rotator cuff tear or rupture of right shoulder, not specified as traumatic (principal); S40.011A Contusion of right shoulder, initial encounter; S32.591A Other specified fracture of right pubis, initial encounter for closed fracture; R53.1 Weakness; R26.2 Difficulty in walking, not elsewhere classified
CPT/HCPCS: 97110; 97112; 97140; 97162; 97535

== ENCOUNTER → 2020-03-13 14:40 | Oncology outpatient (ONC) | payer OTHER, SELFPAY ==
--- NOTE | 2018-06-14 15:35 | ONC.APRN.PN ---
Assessment and Plan (1) Colon cancer Current visit: No Status: Acute 06/14/18 15:38 The patient is an 82 year old Female who is being seen in the clinic 06/14/2018 forT3 N0 M0 cecal carcinoma, Stage IIA, resected by Dr. Preciado 10/21/2015. She was last evaluated in this clinic by Dr. Larios November 14, 2017. Exam was unremarkable. Dr. Larios appropriately ordered a routine screening CT scan December 13, 2017 which was without evidence of recurrent or metastatic disease. Patient presents today for routine clinical surveillance. Reassuringly no clinical signs or symptoms to suggest disease recurrence on exam today. Additionally, CBC CMP unremarkable. CEA remains low at 1.1. Patient is scheduled for her colonoscopy November 09, 2018. She does need to schedule a mammogram. Return to clinic in 6 months time for CBC CMP CEA. 06/14/18 16:00 PN -Subjective Interval history: The patient is an 82 year old Female who is being seen in the clinic 06/14/2018 forT3 N0 M0 cecal carcinoma, Stage IIA, resected by Dr. Preciado 10/21/2015. She was last evaluated in this clinic by Dr. Larios November 14, 2017. Exam was unremarkable. Dr. Larios appropriately ordered a routine screening CT scan December 13, 2017 which was without evidence of recurrent or metastatic disease. Patient presents today for routine clinical surveillance. She has no new complaints on exam todday, overall doing quite well. She remains very active. Appetite is stable, weight is stable. No issue with bladder or bowel habits. No loose or watery stools. No constipation. No blood noted in stools, no black or tarry stools. No new pain. No new lumps or bumps. She is scheduled for colonoscopy this upcoming November 09, 2018. Timeline: She underwent laparoscopic right hemicolectomy with primary ileocolostomy on 10/21/2015. There was a finding of a cecal and appendiceal mass. 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 There was invasion of the muscularis propria extending to the pericolonic adipose tissue extending close to the serosal surface but not invading it. Margins were negative, closest 1.6 cm; no Lymphovascular invasion. The proximal appendix was involved by carcinoma, the distal appendix involved with fibrous tissue. 32 lymph nodes were negative for metastatic carcinoma final staging pT3, invading through the muscularis into pericolonic colorectal tissues, pN0 with 32 negative nodes), M0 by CT scanning. She had a negative colonoscopy on Nov 11 2016. Past Medical History resection of cecal carcinoma Cervical laminectomy [address] Omar Balderas's notes, cervical spine surgery, BTL, T and A. Patient states she has no other medical history or diagnoses. Colorectal Resection Staging Colorectal Primary Tumor T3- invades subserosa Colorectal Regional Nodes N0-no regional metastasis Colorectal Metastasis M0-No distal metastasis Colorectal Histologic Grade Grade II Results - Imaging Additional studies: Procedures Introduction of Serum, Toxoid and Vaccine into Muscle, Percutaneous Approach (10/21/15) Resection of Right Large Intestine, Percutaneous Endoscopic Approach (10/21/15) Home Medications and Allergies Home Medications Medication Instructions Recorded Confirmed Type lysine 500 mg PO QDAY #0 08/23/16 History magnesium oxide 400 mg PO QDAY #0 08/23/16 History varicella-zoster gE-AS01B (PF) 0.5 ml IM SEE INSTRUCTIONS #1 ea 01/26/18 Rx [Shingrix (PF)] ascorbic acid-vitamin E-biotin 7.5 - 1,250 mg PO QAM 06/14/18 06/14/18 History [Hair, Skin, Nails with Biotin] calcium citrate 250 mg PO DAILY 06/14/18 06/14/18 History cyanocobalamin (vitamin B-12) 1,000 mcg PO DAILY 06/14/18 06/14/18 History [Vitamin B-12] ferrous sulfate 325 mg PO DAILY 06/14/18 06/14/18 History lactobacillus combination no.4 3,000 mmu cells PO DAILY 06/14/18 06/14/18 History [Probiotic] Allergies Allergy/AdvReac Type Severity Reaction Status Date / Time Sulfa (Sulfonamide Allergy Intermediate HIVES Verified 06/14/18 15:42 Antibiotics) [SULFA (SULFONAMIDE ANTIBIOTICS)] Exam Narrative: Appears younger than chronological age of 82. - Constitutional positive no acute distress, positive thin - Routine HEENT Exam Eye: Present: conjunctivae pink. Absent: conjunctival icterus, scleral injection ENT: Present: mucous membranes moist, oropharynx clear - Routine Neck Exam Present: supple. Absent: lymphadenopathy - Routine Respiratory Exam Present: Clear to auscultation bilaterally. Absent: rales, rhonchi, wheezes - Routine Cardiovascular Exam Present: RRR, S1, S2. Absent: murmur, gallop, rubs, JVD - Routine Abdominal Exam Present: soft, normoactive bowel sounds. Absent: tenderness, distended, organomegaly, mass - Routine Extremities Exam Absent: edema, calf tenderness Comments: right 3rd digit paronychia - Routine Skin Exam Present: intact, normal turgor. Absent: petechiae, rash - Routine Neurological Exam Present: alert, oriented X3 - Routine Psychiatric Exam Present: normal affect
[2018-12-20 11:18] LABS: Add Manual Diff / Slide Review NO; Basophils Absolute Auto 100 /uL (0-100); Eosinophils Absolute Auto 200 /uL (0-450); Eosinophils Percent Auto 2.3 % (2-4); Hematocrit 45.8 % (36-46); Hemoglobin 15.3 g/dL (12.0-16.0); Lymphocytes Absolute Auto 2200 /uL (1100-4500); Lymphocytes Percent Auto 30.3 % (25-40); Mean Corpuscular HGB Conc 33.3 % (30-36); Mean Corpuscular Hemoglobin 31.2 PG (26-34); Mean Corpuscular Volume 93.6 fL (80-100); Monocytes Absolute Auto 500 /uL (0-900); Monocytes Percent Auto 6.3 % (3-14); Neutrophils Absolute Auto 4400 /uL (1500-7000); Neutrophils Percent Auto 60.1 % (50-75); Platelet Count 246 X10^3/uL (150-400); Red Blood Cell Count 4.89 X10^6/uL (4.0-5.2); Red Cell Distribution Width 13.3 % (11.6-14.8); White Blood Cell Count 7.2 X10^3/uL (4.5-11.0)
[2018-12-20 11:35] LABS: Alanine Aminotransferase 31 IU/L (9-52); Albumin 4.7 g/dL (3.5-5.0); Albumin Globulin Ratio 1.4 (1.0-2.8); Alkaline Phosphatase 69 U/L (38-126); Aspartate Aminotransferase 31 IU/L (14-36); Bilirubin Total 0.5 mg/dL (0.2-1.3); Blood Urea Nitrogen 21 mg/dL (7-17); Calcium 9.8 mg/dL (8.4-10.2); Carbon Dioxide 26 mmol/L (22-32); Chloride 102 mmol/L (98-107); Estimated Glomerular Filt Rate > 60.0 mL/min (>60); Globulin 3.3 g/dL (1.7-4.1); Glucose 111 mg/dL (80-110); HEMOLYSIS < 15 (0-50); Potassium 4.5 mmol/L (3.4-5.1); Sodium 139 mmol/L (137-145)
[2018-12-20 12:06] LABS: Carcinoembryonic Antigen 1.1 ng/mL (0.1-3.0)
[2018-12-26 12:45] VITALS: BP 138/73; PULSE 73; RESP 18; TEMP 36.8; O2SAT 99
--- NOTE | 2018-12-26 13:12 | P.PNONC_ITS ---
PN -Subjective Interval history: The patient is an 83 year old Female who is being seen in the clinic 12/26/2018 for a diagnosis of T3 N0 M0 cecal carcinoma, Stage IIA, resected by Dr. Preciado 10/21/2015. She was last evaluated in this clinic by Dr. Larios June 14, 2018. Exam was unremarkable. During the interval patient underwent scheduled colonoscopy dated November 09, 2018. No concerning findings, no biopsies were collected. Plan is to repeat colonoscopy in 2 years or as clinically indicated. She has no new complaints on exam today, overall doing quite well. She remains very active. Appetite is stable, weight is stable. No issue with bladder or bowel habits. No loose or watery stools. No constipation. No blood noted in stools, no black or tarry stools. No new pain. No new lumps or bumps. Unfortunately her daughter is quite ill, per report some type of neurological issue however still searching for a diagnosis. Meanwhile she is really going down the drain. Timeline: She underwent laparoscopic right hemicolectomy with primary ileocolostomy on 10/21/2015. There was a finding of a cecal and appendiceal mass. 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 There was invasion of the muscularis propria extending to the pericolonic adipose tissue extending close to the serosal surface but not invading it. Margins were negative, closest 1.6 cm; no Lymphovascular invasion. The proximal appendix was involved by carcinoma, the distal appendix involved with fibrous tissue. 32 lymph nodes were negative for metastatic carcinoma final staging pT3, invading through the muscularis into pericolonic colorectal tissues, pN0 with 32 negative nodes), M0 by CT scanning. She had a negative colonoscopy on Nov 11 2016. Past Medical History resection of cecal carcinoma Cervical laminectomy [address] Omar Balderas's notes, cervical spine surgery, BTL, T and A. Patient states she has no other medical history or diagnoses. Colorectal Resection Staging Colorectal Primary Tumor T3- invades subserosa Colorectal Regional Nodes N0-no regional metastasis Colorectal Metastasis M0-No distal metastasis Colorectal Histologic Grade Grade II Home Medications and Allergies Home Medications Medication Instructions Recorded Confirmed Type lysine 500 mg PO QDAY #0 08/23/16 11/09/18 History magnesium oxide 400 mg PO QDAY #0 08/23/16 11/09/18 History varicella-zoster gE-AS01B (PF) 0.5 ml IM SEE INSTRUCTIONS #1 ea 01/26/18 11/09/18 Rx [Shingrix (PF)] ascorbic acid-vitamin E-biotin 7.5 - 1,250 mg PO QAM 06/14/18 11/09/18 History [Hair, Skin, Nails with Biotin] calcium citrate 250 mg PO DAILY 06/14/18 11/09/18 History cyanocobalamin (vitamin B-12) 1,000 mcg PO DAILY 06/14/18 11/09/18 History [Vitamin B-12] ferrous sulfate 325 mg PO DAILY 06/14/18 11/09/18 History lactobacillus combination no.4 3,000 mmu cells PO DAILY 06/14/18 11/09/18 History [Probiotic] Allergies Allergy/AdvReac Type Severity Reaction Status Date / Time Sulfa (Sulfonamide Allergy Intermediate HIVES Verified 06/14/18 15:42 Antibiotics) [SULFA (SULFONAMIDE ANTIBIOTICS)] Exam Vital signs: Vital Signs Temp Pulse Resp BP Pulse Ox 12/26/18 12:45 98.2 F 73 18 138/73 99 Intake and Output 12/25/18 12/26/18 12/26/18 23:59 07:59 15:59 Other: Weight 48.6 kg Patient Weight 12/27/18 07:59 Weight 48.6 kg - Constitutional positive no acute distress - Routine HEENT Exam Eye: Present: conjunctivae pink. Absent: conjunctival icterus, scleral injection ENT: Present: mucous membranes moist, oropharynx clear - Routine Neck Exam Present: supple. Absent: lymphadenopathy - Routine Chest/Breast/Axilla Exam Axillae: Absent: lymphadenopathy, mass, tenderness - Routine Respiratory Exam Present: Clear to auscultation bilaterally. Absent: rales, rhonchi, wheezes - Routine Cardiovascular Exam Present: RRR, S1, S2. Absent: murmur, gallop, rubs, JVD - Routine Abdominal Exam Present: soft, normoactive bowel sounds. Absent: tenderness, distended, rebound, guarding, organomegaly Palpation/Percussion: Absent: fluid waves - Routine Extremities Exam Absent: edema, calf tenderness - Routine Skin Exam Present: intact, normal turgor. Absent: rash - Routine Neurological Exam Present: alert, oriented X3 - Routine Psychiatric Exam Present: normal affect Results - Labs Laboratory Last Values WBC 7.2 X10^3/uL (4.5-11.0) 12/20/18 11:06 RBC 4.89 X10^6/uL (4.0-5.2) 12/20/18 11:06 Hgb 15.3 g/dL (12.0-16.0) 12/20/18 11:06 Hct 45.8 % (36-46) 12/20/18 11:06 MCV 93.6 fL (80-100) 12/20/18 11:06 MCH 31.2 PG (26-34) 12/20/18 11:06 MCHC 33.3 % (30-36) 12/20/18 11:06 RDW 13.3 % (11.6-14.8) 12/20/18 11:06 Plt Count 246 X10^3/uL (150-400) 12/20/18 11:06 Neut % (Auto) 60.1 % (50-75) 12/20/18 11:06 Lymph % (Auto) 30.3 % (25-40) 12/20/18 11:06 [place] % (Auto) 6.3 % (3-14) 12/20/18 11:06 Eos % (Auto) 2.3 % (2-4) 12/20/18 11:06 Baso % (Auto) 1.0 % (0-2) 12/20/18 11:06 Neut # (Auto) 4400 /uL (8754-9919) 12/20/18 11:06 Lymph # (Auto) 2200 /uL (6146-4921) 12/20/18 11:06 [place] # (Auto) 500 /uL (0-900) 12/20/18 11:06 Eos # (Auto) 200 /uL (0-450) 12/20/18 11:06 Baso # (Auto) 100 /uL (0-100) 12/20/18 11:06 Sodium 139 mmol/L (137-145) 12/20/18 11:06 Potassium 4.5 mmol/L (3.4-5.1) 12/20/18 11:06 Chloride 102 mmol/L (98-107) 12/20/18 11:06 Carbon Dioxide 26 mmol/L (22-32) 12/20/18 11:06 BUN 21 mg/dL (7-17) H 12/20/18 11:06 Creatinine 0.70 mg/dL (0.52-1.04) 12/20/18 11:06 Estimated GFR > 60.0 mL/min (>60) 12/20/18 11:06 BUN/Creatinine Ratio 30.0 (6-22) H 12/20/18 11:06 Glucose 111 mg/dL (80-110) H 12/20/18 11:06 Calcium 9.8 mg/dL (8.4-10.2) 12/20/18 11:06 Total Bilirubin 0.5 mg/dL (0.2-1.3) 12/20/18 11:06 AST 31 IU/L (14-36) 12/20/18 11:06 ALT 31 IU/L (9-52) 12/20/18 11:06 Alkaline Phosphatase 69 U/L (38-126) 12/20/18 11:06 Total Protein 8.0 g/dL (6.3-8.2) 12/20/18 11:06 Albumin 4.7 g/dL (3.5-5.0) 12/20/18 11:06 Globulin 3.3 g/dL (1.7-4.1) 12/20/18 11:06 Albumin/Globulin Ratio 1.4 (1.0-2.8) 12/20/18 11:06 Carcinoembryonic Ag 1.1 ng/mL (0.1-3.0) 12/20/18 11:06 - Imaging Additional studies: Procedures Introduction of Serum, Toxoid and Vaccine into Muscle, Percutaneous Approach (10/21/15) Resection of Right Large Intestine, Percutaneous Endoscopic Approach (10/21/15) Assessment and Plan (1) Colon cancer Current visit: No Status: Acute The patient is an 83-year-old female who we follow in this clinic for a diagnosis of T3 N0 M0 cecal carcinoma. Reassuringly on exam today no clinical signs or symptoms to suggest disease recurrence. Additionally, recent colonoscopy November 09, 2018 was without evidence of disease as well. CBC, CMP unremarkable. CEA remains appropriately low at 1.1. In keeping in line with NCCN guidelines patient is due for annual CT. Pt is requesting we add neck to CT scan to also evaluate ongoing neck/right shoulder issues. RTC in 6 months to establish with one of our new oncologists at which time we will also check cbc cmp CEA. I reviewed red flags with the pt today which would require further eval. Pt verbalizes understanding.
--- NOTE | 2019-11-20 16:24 | P.PNONC_ITS ---
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 There was invasion of the muscularis propria extending to the pericolonic adipose tissue and extending close to the serosal surface but not invading it. Margins were negative, closest 1.6 cm; no Lymphovascular invasion. The proximal appendix was involved by carcinoma, the distal appendix involved with fibrous tissue. 32 lymph nodes were negative for metastatic carcinoma. Final staging pT3, pN0 (32 negative nodes), M0 by CT scanning. Interim Events: Patient presents here today for scheduled follow-up visit. She reported no new signs or symptoms. She reports good appetite. Her weight has been stable. She denies any new onset pain problem. The only thing she was complaining is a tiny skin nodule underneath the right chain without tenderness. - Additional ROS All systems PM: reviewed and no additional remarkable complaints except as stated Home Medications and Allergies Home Medications Medication Instructions Recorded Confirmed Type lysine 500 mg PO QDAY #0 08/23/16 11/20/19 History magnesium oxide 400 mg PO QDAY #0 08/23/16 11/20/19 History varicella-zoster [id number]-AS01B (PF) 0.5 ml IM SEE INSTRUCTIONS #1 ea 01/26/18 11/09/18 Rx [Shingrix (PF)] ascorbic acid-vitamin E-biotin 7.5 - 1,250 mg PO QAM 06/14/18 11/20/19 History [Hair, Skin, Nails with Biotin] calcium citrate 250 mg PO DAILY 06/14/18 11/20/19 History cyanocobalamin (vitamin B-12) 1,000 mcg PO DAILY 06/14/18 11/20/19 History [Vitamin B-12] ferrous sulfate 325 mg PO DAILY 06/14/18 11/20/19 History lactobacillus combination no.4 3,000 mmu cells PO DAILY 06/14/18 11/20/19 History [Probiotic] Allergies Allergy/AdvReac Type Severity Reaction Status Date / Time Sulfa (Sulfonamide Allergy Intermediate HIVES Verified 06/14/18 15:42 Antibiotics) [SULFA (SULFONAMIDE ANTIBIOTICS)] Exam Vital signs: Last Vital Signs Temp 98.2 F 12/26/18 12:45 Pulse 73 12/26/18 12:45 Resp 18 12/26/18 12:45 BP 138/73 12/26/18 12:45 Pulse Ox 99 12/26/18 12:45 ECOG 1 Narrative: Gen: WDWN, NAD, pleasant and cooperative. Here by herself HEENT: NCAT, EOMI, PERRLA, anicteric sclera. A tiny cutaneous nodule about 3-4 mm in size palpable just underneath the right chin Neck: Supple, No palpable thyromegaly or lymphadenopathy. Respiratory: CTAB, no wheezes audible. No JVD Cardiovascular: RRR, S1 and S2 normal, no M/G/R. Abdomen: Soft, NTND, BS normal, no palpable organomegaly Extremities: No LE pitting edema. Lymphatic: no palpable lymph nodes in the neck, axillae, or groins. Neurological: AOx3, CN II-XII grossly intact. No focal motor or sensory deficit. Psychiatric: Normal affect; no depression Results - Labs Laboratory Last Values WBC 7.2 X10^3/uL (4.5-11.0) 12/20/18 11:06 RBC 4.89 X10^6/uL (4.0-5.2) 12/20/18 11:06 Hgb 15.3 g/dL (12.0-16.0) 12/20/18 11:06 Hct 45.8 % (36-46) 12/20/18 11:06 MCV 93.6 fL (80-100) 12/20/18 11:06 MCH 31.2 PG (26-34) 12/20/18 11:06 MCHC 33.3 % (30-36) 12/20/18 11:06 RDW 13.3 % (11.6-14.8) 12/20/18 11:06 Plt Count 246 X10^3/uL (150-400) 12/20/18 11:06 Neut % (Auto) 60.1 % (50-75) 12/20/18 11:06 Lymph % (Auto) 30.3 % (25-40) 12/20/18 11:06 Gilchrist % (Auto) 6.3 % (3-14) 12/20/18 11:06 Eos % (Auto) 2.3 % (2-4) 12/20/18 11:06 Baso % (Auto) 1.0 % (0-2) 12/20/18 11:06 Neut # (Auto) 4400 /uL (6021-6281) 12/20/18 11:06 Lymph # (Auto) 2200 /uL (3257-6514) 12/20/18 11:06 Gilchrist # (Auto) 500 /uL (0-900) 12/20/18 11:06 Eos # (Auto) 200 /uL (0-450) 12/20/18 11:06 Baso # (Auto) 100 /uL (0-100) 12/20/18 11:06 Sodium 139 mmol/L (137-145) 12/20/18 11:06 Potassium 4.5 mmol/L (3.4-5.1) 12/20/18 11:06 Chloride 102 mmol/L (98-107) 12/20/18 11:06 Carbon Dioxide 26 mmol/L (22-32) 12/20/18 11:06 BUN 21 mg/dL (7-17) H 12/20/18 11:06 Creatinine 0.70 mg/dL (0.52-1.04) 12/20/18 11:06 Estimated GFR > 60.0 mL/min (>60) 12/20/18 11:06 BUN/Creatinine Ratio 30.0 (6-22) H 12/20/18 11:06 Glucose 111 mg/dL (80-110) H 12/20/18 11:06 Calcium 9.8 mg/dL (8.4-10.2) 12/20/18 11:06 Total Bilirubin 0.5 mg/dL (0.2-1.3) 12/20/18 11:06 AST 31 IU/L (14-36) 12/20/18 11:06 ALT 31 IU/L (9-52) 12/20/18 11:06 Alkaline Phosphatase 69 U/L (38-126) 12/20/18 11:06 Total Protein 8.0 g/dL (6.3-8.2) 12/20/18 11:06 Albumin 4.7 g/dL (3.5-5.0) 12/20/18 11:06 Globulin 3.3 g/dL (1.7-4.1) 12/20/18 11:06 Albumin/Globulin Ratio 1.4 (1.0-2.8) 12/20/18 11:06 Carcinoembryonic Ag 1.1 ng/mL (0.1-3.0) 12/20/18 11:06 - Imaging Additional studies: Procedures Introduction of Serum, Toxoid and Vaccine into Muscle, Percutaneous Approach (10/21/15) Resection of Right Large Intestine, Percutaneous Endoscopic Approach (10/21/15) Assessment and Plan (1) Colon cancer Overview: Stage IIA (pT3 pN0 cM0) cecal carcinoma status post laparoscopic right hemicolectomy with primary ileocolostomy on 10/21/2015. Thirty two lymph nodes were negative for metastatic carcinoma. No LVI. Assessment: Clinically patient has been doing well and I don't think there's any signs or symptoms to suggest disease recurrence or metastasis. I talked with her that I will continue active surveillance. I will bring her back in about 3 months for follow-up visit. I talked with her that the small cutaneous nodule underneath the right chin is likely benign. When she comes back will evaluate if it is changing. Patient voiced understanding. plan: RTC in 3 months, CBC, CMP, CEA
[2020-03-10 15:30] LABS: Add Manual Diff / Slide Review NO; Basophils Absolute Auto 100 /uL (0-100); Basophils Percent Auto 0.7 % (0-2); Eosinophils Absolute Auto 100 /uL (0-450); Eosinophils Percent Auto 0.8 % (2-4); Hematocrit 42.3 % (36-46); Lymphocytes Absolute Auto 2400 /uL (1100-4500); Lymphocytes Percent Auto 20.1 % (25-40); Mean Corpuscular HGB Conc 33.1 % (30-36); Mean Corpuscular Hemoglobin 31.3 PG (26-34); Mean Corpuscular Volume 94.6 fL (80-100); Monocytes Absolute Auto 700 /uL (0-900); Monocytes Percent Auto 6.1 % (3-14); Neutrophils Absolute Auto 8600 /uL (1500-7000); Neutrophils Percent Auto 72.3 % (50-75); Platelet Count 231 X10^3/uL (150-400); Red Blood Cell Count 4.48 X10^6/uL (4.0-5.2); Red Cell Distribution Width 13.4 % (11.6-14.8); White Blood Cell Count 11.9 X10^3/uL (4.5-11.0)
[2020-03-10 15:42] LABS: Alanine Aminotransferase 29 IU/L (<35); Albumin 4.4 g/dL (3.5-5.0); Albumin Globulin Ratio 1.4 (1.0-2.8); Alkaline Phosphatase 55 U/L (38-126); Aspartate Aminotransferase 34 IU/L (14-36); BUN Creatinine Ratio 35.5 (6-22); Bilirubin Total 0.5 mg/dL (0.2-1.3); Blood Urea Nitrogen 27 mg/dL (7-17); Calcium 9.3 mg/dL (8.4-10.2); Carbon Dioxide 28 mmol/L (22-32); Chloride 104 mmol/L (98-107); Estimated Glomerular Filt Rate > 60.0 mL/min (>60); Globulin 3.1 g/dL (1.7-4.1); Glucose 137 mg/dL (80-110); HEMOLYSIS < 15 (0-50); Potassium 4.1 mmol/L (3.4-5.1); Sodium 139 mmol/L (137-145); Total Protein 7.5 g/dL (6.3-8.2)
[2020-03-10 16:13] LABS: Carcinoembryonic Antigen 1.1 ng/mL (0.1-3.0)
[2020-03-13 15:45] VITALS: BP 122/77; PULSE 68; RESP 16; TEMP 36.6; O2SAT 96
--- NOTE | 2020-03-13 15:50 | P.PNONC_ITS ---
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 There was invasion of the muscularis propria extending to the pericolonic adipose tissue and extending close to the serosal surface but not invading it. Margins were negative, closest 1.6 cm; no Lymphovascular invasion. The proximal appendix was involved by carcinoma, the distal appendix involved with fibrous tissue. 32 lymph nodes were negative for metastatic carcinoma. Final staging pT3, pN0 (32 negative nodes), M0 by CT scanning. Interim Events: Patient has been doing well and without any new signs or symptoms. She said she is healthy and she has no problems. - Additional ROS All systems PM: reviewed and no additional remarkable complaints except as stated Home Medications and Allergies Home Medications Medication Instructions Recorded Confirmed Type lysine 500 mg PO QDAY #0 08/23/16 03/13/20 History magnesium oxide 400 mg PO QDAY #0 08/23/16 03/13/20 History Shingrix (PF) 0.5 ml IM SEE INSTRUCTIONS #1 ea 01/26/18 03/13/20 Rx ascorbic acid-vitamin E-biotin 7.5 - 1,250 mg PO QAM 06/14/18 03/13/20 History [Hair, Skin, Nails with Biotin] calcium citrate 250 mg PO DAILY 06/14/18 03/13/20 History cyanocobalamin (vitamin B-12) 1,000 mcg PO DAILY 06/14/18 03/13/20 History [Vitamin B-12] ferrous sulfate 325 mg PO DAILY 06/14/18 03/13/20 History lactobacillus combination no.4 3,000 mmu cells PO DAILY 06/14/18 03/13/20 History [Probiotic] Allergies Allergy/AdvReac Type Severity Reaction Status Date / Time Sulfa (Sulfonamide Allergy Intermediate HIVES Verified 06/14/18 15:42 Antibiotics) [SULFA (SULFONAMIDE ANTIBIOTICS)] Exam Vital signs: Vital Signs Temp Pulse Resp BP Pulse Ox 03/13/20 15:45 97.8 F 68 16 122/77 96 Intake and Output 0503/13/20 03/13/20 23:59 07:59 15:59 Other: Weight 47.2 kg Patient Weight 03/13/20 23:59 Weight 47.2 kg Narrative: ECOG 1 Vitals above reviewed Constitutional: well developed, and well nourished, and well groomed, not in any acute respiratory distress, pleasant and cooperative. HEENT: NCAT, EOMI, PERRLA. Anicteric sclera. Neck: Supple and symmetrical Respiratory: No use of accessory muscles Musculoskeletal: normal gait and station Neurological: CN II-XII grossly intact. No focal motor or sensory deficit. Psychiatric: Normal judgment and insight. AOx3. Normal memory (recent and remote). Normal mood and affect. Results - Labs Laboratory Last Values WBC 11.9 X10^3/uL (4.5-11.0) H 03/10/20 15:20 RBC 4.48 X10^6/uL (4.0-5.2) 03/10/20 15:20 Hgb 14.0 g/dL (12.0-16.0) 03/10/20 15:20 Hct 42.3 % (36-46) 03/10/20 15:20 MCV 94.6 fL (80-100) 03/10/20 15:20 MCH 31.3 PG (26-34) 03/10/20 15:20 MCHC 33.1 % (30-36) 03/10/20 15:20 RDW 13.4 % (11.6-14.8) 03/10/20 15:20 Plt Count 231 X10^3/uL (150-400) 03/10/20 15:20 Neut % (Auto) 72.3 % (50-75) 03/10/20 15:20 Lymph % (Auto) 20.1 % (25-40) L 03/10/20 15:20 [place] % (Auto) 6.1 % (3-14) 03/10/20 15:20 Eos % (Auto) 0.8 % (2-4) L 03/10/20 15:20 Baso % (Auto) 0.7 % (0-2) 03/10/20 15:20 Neut # (Auto) 8600 /uL (6332-2792) H 03/10/20 15:20 Lymph # (Auto) 2400 /uL (1751-0461) 03/10/20 15:20 [place] # (Auto) 700 /uL (0-900) 03/10/20 15:20 Eos # (Auto) 100 /uL (0-450) 03/10/20 15:20 Baso # (Auto) 100 /uL (0-100) 03/10/20 15:20 Sodium 139 mmol/L (137-145) 03/10/20 15:20 Potassium 4.1 mmol/L (3.4-5.1) 03/10/20 15:20 Chloride 104 mmol/L (98-107) 03/10/20 15:20 Carbon Dioxide 28 mmol/L (22-32) 03/10/20 15:20 BUN 27 mg/dL (7-17) H 03/10/20 15:20 Creatinine 0.76 mg/dL (0.52-1.04) 03/10/20 15:20 Estimated GFR > 60.0 mL/min (>60) 03/10/20 15:20 BUN/Creatinine Ratio 35.5 (6-22) H 03/10/20 15:20 Glucose 137 mg/dL (80-110) H 03/10/20 15:20 Calcium 9.3 mg/dL (8.4-10.2) 03/10/20 15:20 Total Bilirubin 0.5 mg/dL (0.2-1.3) 03/10/20 15:20 AST 34 IU/L (14-36) 03/10/20 15:20 ALT 29 IU/L (<35) 03/10/20 15:20 Alkaline Phosphatase 55 U/L (38-126) 03/10/20 15:20 Total Protein 7.5 g/dL (6.3-8.2) 03/10/20 15:20 Albumin 4.4 g/dL (3.5-5.0) 03/10/20 15:20 Globulin 3.1 g/dL (1.7-4.1) 03/10/20 15:20 Albumin/Globulin Ratio 1.4 (1.0-2.8) 03/10/20 15:20 Carcinoembryonic Ag 1.1 ng/mL (0.1-3.0) 03/10/20 15:20 - Imaging Additional studies: Procedures Introduction of Serum, Toxoid and Vaccine into Muscle, Percutaneous Approach (10/21/15) Resection of Right Large Intestine, Percutaneous Endoscopic Approach (10/21/15) Assessment and Plan (1) Colon cancer Overview: Stage IIA (pT3 pN0 cM0) cecal carcinoma status post laparoscopic right hemicolectomy with primary ileocolostomy on 10/21/2015. Thirty two lymph nodes were negative for metastatic carcinoma. No LVI. Assessment: I reviewed the laboratory test results with the patient. Patient's tumor marker CEA is 1.1 which is completely normal. Clinically patient said that she is healthy and she does not have any problems. She is wondering if she ever needs to come back to the clinic for follow-up again. I talked with her that since now it is almost 5 years out from the previous treatment of the colon cancer, it would be reasonable whether follow-up with me or follow up with primary care provider. However I emphasized that she needs to follow-up with a physician regularly. If she does not come here for follow-up, she needs to follow up her primary care provider at least once a year. Patient voiced understanding. plan: RTC PRN
== END ==
PROVIDERS: Nurse Practitioner Gerontology; PCP Family Medicine; Visit Provider Internal Medicine Hematology & Oncology
DX: Z08 Encounter for follow-up examination after completed treatment for malignant neoplasm (principal); Z85.038 Personal history of other malignant neoplasm of large intestine; Z93.2 Ileostomy status
CPT/HCPCS: 36415; 80053; 82378; 85025; 99214

== ENCOUNTER → 2020-06-21 17:03 | Outpatient (ROUT) | payer OTHER, SELFPAY ==
[2020-06-22 23:11] LABS: COVID19 Sendout Not Detected (Not Detect)
== END ==
PROVIDERS: PCP Family Medicine; Visit Provider Nurse Practitioner
DX: R05 Cough (principal)
CPT/HCPCS: 87635

== ENCOUNTER → 2023-11-24 09:57 | Outpatient (CLI) | payer OTHER, SELFPAY ==
[2023-06-02 08:21] VITALS: BMI 18.6
[2023-11-24 10:35] LABS: Add Manual Diff / Slide Review NO; Basophils Absolute Auto 100 /uL (0-100); Basophils Percent Auto 0.9 % (0-2); Eosinophils Absolute Auto 100 /uL (0-450); Eosinophils Percent Auto 1.2 % (2-4); Hematocrit 42.5 % (36-46); Hemoglobin 14.3 g/dL (12.0-16.0); Lymphocytes Absolute Auto 2300 /uL (1100-4500); Lymphocytes Percent Auto 27.8 % (25-40); Mean Corpuscular HGB Conc 33.7 % (30-36); Mean Corpuscular Hemoglobin 31.5 PG (26-34); Mean Corpuscular Volume 93.5 fL (80-100); Monocytes Absolute Auto 500 /uL (0-900); Monocytes Percent Auto 6.7 % (3-14); Neutrophils Absolute Auto 5200 /uL (1500-7000); Neutrophils Percent Auto 63.4 % (50-75); Platelet Count 245 X10^3/uL (150-400); Red Blood Cell Count 4.55 X10^6/uL (4.0-5.2); Red Cell Distribution Width 13.7 % (11.6-14.8); White Blood Cell Count 8.1 X10^3/uL (4.5-11.0)
[2023-11-24 11:01] LABS: Alanine Aminotransferase 29 IU/L (<35); Albumin 4.5 g/dL (3.5-5.0); Albumin Globulin Ratio 1.3 (1.0-2.8); Alkaline Phosphatase 75 U/L (38-126); Aspartate Aminotransferase 44 IU/L (14-36); BUN Creatinine Ratio 30.8 (6-22); Bilirubin Total 0.9 mg/dL (0.2-1.3); Blood Urea Nitrogen 24 mg/dL (7-17); Calcium 9.9 mg/dL (8.4-10.2); Carbon Dioxide 28 mmol/L (22-32); Chloride 103 mmol/L (98-107); Estimated Glomerular Filt Rate > 60 mL/min (>60); Globulin 3.6 g/dL (1.7-4.1); Glucose 114 mg/dL (80-110); HEMOLYSIS 34 (0-50); Potassium 5.4 mmol/L (3.4-5.1); Sodium 138 mmol/L (137-145); Total Protein 8.1 g/dL (6.3-8.2)
[2023-11-24 11:32] LABS: TSH w/ Reflex to FT4 1.74 uIU/mL (0.47-4.68)
== END ==
LOC: LAB 09:58
PROVIDERS: PCP Family Medicine; Referring Provider Family Medicine; Visit Provider Family Medicine
DX: S32.9XXA Fracture of unspecified parts of lumbosacral spine and pelvis, initial encounter for closed fracture (principal); Z85.038 Personal history of other malignant neoplasm of large intestine; M85.80 Other specified disorders of bone density and structure, unspecified site
CPT/HCPCS: 36415; 80053; 84443; 85025